=== PATIENT | male | born 1945 | race African-American/Black ===

== ENCOUNTER → 2017-09-16 10:29 | Outpatient (CLI) | payer MEDICARE ==
[2016-06-10 06:44] VITALS: BMI 36.8
[~2017-09-16 10:29] MED LIST: BAYER CHEWABLE81 MG PO; BUMEX2 MG PO; COUMADIN5 MG PO; DUONEB 2.5-0.5 M3 ML UPD; FOLIC ACID1 MG; GLUCOTROL 5 MG T5 MG PO; HYDRALAZINE20 MG/ML IV; HYDROCODON-ACE1 EAC7 PO; HYDROCODONE-APA1 TAB PO; LISINOPRIL10 MG NG; LISINOPRIL10 MG PO; LOVENOX40 MG/0.4 SQ; MIRALAX17 GM PO; NEPHRO-VITE RX1 TAB PO; NORVASC10 MG PO; ONDANSETRON4 MG/2 M3 IV; PEPCID20 MG PO; PERCOCET 10/3251 TA1 PO; PHENOBARBI20 MG/5 ML IV; PHENOBARBITAL IV; PHENOBARBITAL32.4 MG PO; PLAVIX75 MG PO; PRILOSEC20 MG PO; PRINIVIL20 MG PO; PROCRIT/EP2000 UNITS SQ; PROTONIX40 MG PO; REGLAN5 MG PO; RENAGEL800 MG PO; RESTORIL22.5 MG PO; SENOKOT-S TABLE1 TAB PO; TENORMIN50 MG PO; TYLENOL 325 MG325 MG PO; TYLENOL650 MG RC; ULTRAM50 MG PO; ZOFRAN4 MG PO
== END | disposition home or self-care (01) ==
LOC: D.RAD 10:29
DX: R07.9 Chest pain, unspecified (principal); S20.219A Contusion of unspecified front wall of thorax, initial encounter; X58.XXXA Exposure to other specified factors, initial encounter; Y93.89 Activity, other specified; Y92.029 Unspecified place in mobile home as the place of occurrence of the external cause

== ENCOUNTER 2017-10-06 06:28 | Day surgery (SDC) | payer MEDICARE ==
[~2017-10-06] VITALS: Ht 169.9 cm; Wt 84.8 kg
[~2017-10-06 06:28] MED LIST changes: -BAYER CHEWABLE81 MG PO; -HYDROCODON-ACE1 EAC7 PO; -NORVASC10 MG PO
[2017-10-06 07:27] LABS: BASOPHILS 0.5 % (0-2); EOSINOPHILS 3.1 % (0-7); HEMATOCRIT 33.6 % (42.0-54.0); HEMOGLOBIN 10.7 g/dL (13.5-17.5); MCH 29.3 pg (26.0-34.0); MCHC 31.8 g/dL (31.0-37.0); MCV 92.1 fL (80.0-100.0); MEAN PLATELET VOLUME 8.7 fL (7.4-10.4); MONOCYTES 4.6 % (2-11); NEUTROPHILS 76.8 % (40-80); PLATELET COUNT 210 10x3/uL (130-400); RBC 3.65 10x6/uL (4.20-6.10); RDW 12.7 % (11.5-14.5); WBC 3.9 10x3/uL (4.8-10.8)
[2017-10-06 07:37] LABS: ANION GAP 17.1 mmol/L (8-16); APTT 30.5 SECONDS (22.8-39.4); CALCIUM 8.9 mg/dL (8.5-10.1); CARBON DIOXIDE 25.2 mmol/L (21.0-32.0); CREATININE - SERUM 11.2 mg/dL (0.6-1.3); INR 0.99 (0.85-1.17); POTASSIUM - SERUM 5.3 mmol/L (3.5-5.1); PROTIME 12.9 SECONDS (11.6-15.0)
[2017-10-06] MEDS ORDERED: BAYER CHEWABLE81 MG PO (08:30)
[2017-10-06] MEDS ORDERED: NORVASC10 MG PO (08:32)
[2017-10-06 08:39] VITALS: Ht 169.9 cm; Wt 84.8 kg
[2017-10-06] MEDS ORDERED: HYDROCODON-ACE1 EAC7 PO (12:39)
--- NOTE | 2017-10-06 12:51 | NUR ---
PRE OPERATIVE BP 195.66
--- NOTE | 2017-10-06 13:56 | NUR ---
4892 ISIDRO GILLESPIE APN NOTIFIED THAT DIALYSIS NEEDS TO USE ACUSEAL AVG PROTOL STARTING TOMORROW WITH 17 G WITH NO ORE THAN 400/CC/MIN AND WEAR STERILE GLOVES FOR 2 WEEKS AND THAT THIS PT HAS A NEW ACUSEAL AVG IN LEFT ARM. JEFF STATES SHE WILL RELAY THE MESSAGE.
--- NOTE | 2017-10-06 14:08 | NUR ---
1400 REPORT TO BERNICE ENGLISH RN.
--- NOTE | 2017-10-06 14:10 | NUR ---
CARE ASSUMED BY THIS NURSE FROM HECTOR YI. BLOOD PRESSURE CUFF MOVED FROM RIGHT LEG TO RIGHT UPPER ARM. PATIENT STATES THAT PRE OPERATIVE BLOOD PRESSURE WAS CHECKED IN RIGHT ARM. BLOOD PRESSURE WITHIN NORMAL RANGE ON RIGHT ARM
--- NOTE | 2017-10-06 14:30 | NUR ---
BLOOD PRESSURE CONTINUES TO BE ACCEPTABLE WHEN CHECKED ON RIGHT ARM. IV DC'D WITH TIP INTACT, PATIENT DRESSING IN PERSONAL CLOTHING WITH SPOUSE ASSISTANCE
--- NOTE | 2017-10-06 15:00 | NUR ---
DISCHARGED HOME VIA WHEELCHAIR TO PRIVATE VEHICLE WITH SPOUSE
--- NOTE | 2017-10-11 16:03 | OP ---
PATIENT NAME: MARIA ANTONIA DEAN MEDICAL RECORD: [id number] :45 LOCATION:D[facility] ADMISSION DATE: SURGEON: VERNA CHRIS MD DATE OF OPERATION: 10/06/2017 REFERRING PHYSICIAN: Tam Goins MD SURGEON: Verna Chris MD ANESTHESIA: General with LMA per HORSE DOCTOR. PREOPERATIVE DIAGNOSES: End-stage renal disease and dependence on hemodialysis. Mechanical complication of surgically implanted arteriovenous graft for hemodialysis access in the left upper extremity. POSTOPERATIVE DIAGNOSES: End-stage renal disease and dependence on hemodialysis. Mechanical complication of surgically implanted arteriovenous graft for hemodialysis access in the left upper extremity. 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 PREOPERATIVE NOTE: Mr. Dean is a very nice 72-year-old -Citizen Of [place] male with end-stage renal disease, who has been dialyzing for sometime now with a PTFE AV graft in the left upper extremity in a rainbow configuration of brachial artery to axillary vein. He has had one revision with a new jump graft implanted lateral to the original and has had numerous endovascular interventions. He is presently having elevated venous pressures and the nurses are having difficulty accessing the graft and he is returned to the operating room at this time with plans to do a fistulogram and treat his central vein stenoses if recurrent and to revise this graft with a new Acuseal jump graft placed as close to the skin as possible in a slightly more lateral positioning in the upper arm in order to make it even easier for his nurses to access it. The patient is at this time off of anticoagulants. PROCEDURE IN DETAIL: Under general anesthesia, the patient was placed in supine position and prepped and draped in a sterile manner. I accessed the AV graft in the left arm percutaneously with micropuncture technique and performed an angiogram. This angiogram was followed through to the right atrium and the retrograde filling of the arterial limb and brachial artery and arterial anastomosis was obtained by injecting with proximal graft compression and occlusion. 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 A stent is present in the subclavian vein and fortunately there was no stenosis of that vessel or brachiocephalic or superior vena cava. The arterial limb of the graft was widely opened as was the arterial anastomosis and there was no evidence of any stenosis or other problems or complication with brachial, radial, or ulnar artery. No emboli or clots. No atherosclerotic stenosis, etc. There was very long and very severe near 99% diameter near occluding stenosis of the body of the graft and this is recurrent, having been treated very recently at [facility] at his last endovascular intervention. OPERATIVE REPORT [id number] MARIA ANTONIA DEAN I elected first to treat the central stenoses, and depending on their response, possibly also implant a new jump graft as I initially planned. Without systemic heparinization, I dilated the intrastent and proximal end of stent stenoses in the axillary vein with a Conquest high-pressure 10- x 40-mm angioplasty balloon and obtained full effacement. Consequent repeat contrast injection demonstrated less than 10% persistent stenosis of the end of stent stenosis and probably 20% stenosis of the in-stent stenosis remained. I then treated this area with a Lutonix drug-coated balloon, 11 x 60 mm in diameter and length. This was inflated in the involved segment with adequate overlap and it was left inflated with full effacement for 2 minutes, after which it was deflated and removed and then contrast injection revealed thrombosis of the axillary vein, which was subsequently treated with balloon maceration and systemic heparinization. I then made 2 incisions, one over the venous limb near the axilla and the other over the juxta-anastomotic or arterial limb near the antecubital space. The old graft was exposed, clamped, and divided. A segment of the graft was excised and sent to the laboratory for culture. This graft was an Acuseal graft. I chose a new Acuseal 6-mm diameter straight PTFE graft and performed the arterial or distal anastomosis first end-to-end with continuous running 6-0 Prolene. The suture line was treated with BioGlue and the graft and arterial anastomosis in brachial artery then flushed with heparinized saline and the graft clamped. The new Acuseal graft was pulled through new more lateral and very superficial subcutaneous tunnel up to the incision in the upper arm, where the graft was shortened and anastomosed end to end to the old graft also with running 6-0 Prolene and that anastomosis also was sealed with BioGlue. After this, the occluding clamps and loops were removed and excellent flow immediately established in the new graft. I performed a completion angiogram by injecting contrast through a micropuncture 4-Turkish catheter placed into the new PTFE segment. This angiogram revealed satisfactory result as far as the stenoses in the axillary vein and free flow to the right atrium. I did see that there was reflux of blood into the left internal jugular vein, but I could not identify any stenosis medial to that. The patient's heparin was not reversed. The wounds were irrigated with antibiotic solution, infiltrated and irrigated with 0.25% Marcaine without epinephrine, and closed with interrupted inverted 3-0 Vicryl and running intracuticular 4-0 Monocryl and Dermabond glue. The 2 incisions were then dressed with Maxorb Ag, Tegaderm, and Cavilon skin prep. The patient was awakened and taken to the recovery room with a good new fistula with good function. Blood loss during the operation was perhaps 100 cc, none was replaced. All sponges, instruments, and needles were accounted for. No drain was used and no surgical specimen was submitted for histopathology. The short segment of the older Acuseal graft was sent to the lab for culture. PLAN: The patient will need to have dialysis tomorrow. He can go home today and continue his usual outpatient dialysis schedule at [facility]. We will need to make very clear to them that it is essential that they follow Acuseal protocol with this new Acuseal graft for the first 2 weeks. That means using 17-gauge needles, restricting flow to 400 cc per minute or less, and using or wearing sterile gloves when accessing the graft. After 2 weeks, if it is functioning well without problems, they can go on to larger gauge needles and higher flows. An appointment was scheduled for him to return to see me in my office next week. I think the patient should continue to be followed at [facility] at 3-month intervals OPERATIVE REPORT [id number] MARIA ANTONIA DEAN with followup angiograms at least until stable or until further interventions are required. TRANSINT:[id number] Voice Confirmation ID: [id number] DOCUMENT ID: [id number] VERNA CHRIS MD at 7207 CC: RONNIE GOINS MD [id number] DICTATION DATE: 10/09/17 1303 INSOLE RASPER: 10/09/17 1828 [facility] 10/06/17 [facility] [address] [id number]
== END 2017-10-06 15:00 | disposition home or self-care (01) ==
LOC: D.OPS 06:28
PROVIDERS: Internal Medicine Nephrology
DX: T82.590A Other mechanical complication of surgically created arteriovenous fistula, initial encounter (principal); T82.858A Stenosis of other vascular prosthetic devices, implants and grafts, initial encounter; I87.1 Compression of vein; N18.6 End stage renal disease; Z99.2 Dependence on renal dialysis; Z01.812 Encounter for preprocedural laboratory examination

== ENCOUNTER → 2017-12-11 09:45 | Outpatient (CLI) | payer MEDICARE ==
[2017-10-06 08:39] VITALS: BMI 29.4
[~2017-12-11 09:45] MED LIST changes: +BAYER CHEWABLE81 MG PO; +HYDROCODON-ACE1 EAC7 PO; +NORVASC10 MG PO
== END | disposition home or self-care (01) ==
LOC: D.RAD 09:45
DX: M25.551 Pain in right hip (principal)

== ENCOUNTER → 2018-09-24 10:22 | Outpatient (CLI) | payer MEDICARE ==
[2017-10-06 08:39] VITALS: BMI 29.4
== END | disposition home or self-care (01) ==
LOC: D.RAD 10:22
DX: R22.42 Localized swelling, mass and lump, left lower limb (principal)

== ENCOUNTER → 2019-03-29 08:05 | Outpatient (CLI) | payer MEDICARE ==
[2017-10-06 08:39] VITALS: BMI 29.4
== END | disposition home or self-care (01) ==
LOC: D.US 08:00 → D.CT 08:00
PROVIDERS: ATTEND Internal Medicine Nephrology
DX: R11.2 Nausea with vomiting, unspecified (principal); R63.4 Abnormal weight loss

== ENCOUNTER 2019-04-28 08:12 | Day surgery (SDC) | payer MEDICARE ==
[~2019-04-28] VITALS: Ht 175.3 cm; Wt 71.7 kg
[2019-04-28 09:03] LABS: INR 1.13 (0.85-1.17)
[2019-04-28 09:04] LABS: APTT 32.2 SECONDS (22.8-39.4)
[2019-04-28 09:05] LABS: ANION GAP 19.1 mmol/L (8-16); CALCIUM 8.7 mg/dL (8.5-10.1); CARBON DIOXIDE 25.3 mmol/L (21.0-32.0); CREATININE - SERUM 5.1 mg/dL (0.6-1.3); POTASSIUM - SERUM 4.4 mmol/L (3.5-5.1)
[2019-04-28 09:37] LABS: BASOPHILS 0.2 % (0-2); EOSINOPHILS 0.6 % (0-7); HEMATOCRIT 40.8 % (42.0-54.0); HEMOGLOBIN 13.5 g/dL (13.5-17.5); IMMATURE GRANULOCYTES 0.8 % (0-5); LYMPHOCYTES 7.1 % (15-50); MCH 29.9 pg (26.0-34.0); MCHC 33.1 g/dL (31.0-37.0); MCV 90.5 fL (80.0-100.0); MONOCYTES 4.9 % (2-11); NEUTROPHILS 86.4 % (40-80); RBC 4.51 10x6/uL (4.20-6.10); RDW 15.4 % (11.5-14.5); WBC 6.5 10x3/uL (4.8-10.8)
[2019-04-28 09:38] LABS: PLATELET COUNT 390 10x3/uL (130-400)
[2019-04-28] MEDS ORDERED: OMEPRAZOLE40 MG PO (11:20)
[2019-04-28 11:35] VITALS: BP 112/61; Ht 175.3 cm; Wt 71.7 kg
--- NOTE | 2019-04-28 15:36 | NUR ---
CARE TRANSFERRED TO CHRISTIANNE LY RN
--- NOTE | 2019-04-28 15:55 | NUR ---
1545-RECD TO ROOM FROM PACU. ALERT. IV PATENT. RESP WITH EASE. R CHEST DRSG DRY AND INTACT. DENIES PAIN.
--- NOTE | 2019-04-28 17:33 | NUR ---
DISCHARGED HOME VIA WHEELCHAIR TO PRIVATE VEHICLE WITH SPOUSE
== END 2019-04-28 17:33 | disposition home or self-care (01) ==
LOC: D.OPS 08:12 → D.PAN 12:00 → D.OPS 17:33
PROVIDERS: Anesthesiology; ATTEND Surgery
DX: C78.80 Secondary malignant neoplasm of unspecified digestive organ (principal)

== ENCOUNTER 2019-05-15 11:20 | Inpatient (IN) | payer MEDICARE ==
[~2019-05-15] VITALS: Ht 175.3 cm; Wt 72.6 kg
[2019-05-15] VITALS (12 sets, daily range): BP systolic 121–155; BP diastolic 62–98; BMI 23.6
[~2019-05-15 11:20] MED LIST changes: +OMEPRAZOLE40 MG PO
[2019-05-15] MEDS ORDERED: DURAGESIC1 PATCH .7 TRANSDERM (11:30)
[2019-05-15] MEDS ORDERED: LEVOTHYROXINE50 MCG PO (11:31)
[2019-05-15] MEDS ORDERED: VELTASSA8.4 GM PO (11:32)
[2019-05-15] MEDS ORDERED: ZOFRAN4 MG PO (11:32)
[2019-05-15] MEDS ORDERED: RENVELA800 MG PO (11:32)
--- NOTE | 2019-05-15 11:38 | NUR ---
PT NOT ABLE TO PROVIDE URINE SAMPLE D/T INABILITY TO PRODUCE URINE
[2019-05-15 11:54] LABS: BASOPHILS 0 % (0-2); EOSINOPHILS 0.1 % (0-7); HEMATOCRIT 30.4 % (42.0-54.0); HEMOGLOBIN 10.3 g/dL (13.5-17.5); IMMATURE GRANULOCYTES 0.2 % (0-5); LYMPHOCYTES 2.7 % (15-50); MCH 29.9 pg (26.0-34.0); MCHC 33.9 g/dL (31.0-37.0); MCV 88.1 fL (80.0-100.0); MEAN PLATELET VOLUME 10.1 fL (7.4-10.4); MONOCYTES 0.8 % (2-11); NEUTROPHILS 96.2 % (40-80); PLATELET COUNT 274 10x3/uL (130-400); RBC 3.45 10x6/uL (4.20-6.10); RDW 14.9 % (11.5-14.5)
[2019-05-15 11:59] LABS: ALBUMIN 2.4 g/dL (3.4-5.0); ANION GAP 23.8 mmol/L (8-16); BILIRUBIN - TOTAL 2.59 mg/dL (0.2-1.3); CALCIUM 8.7 mg/dL (8.5-10.1); CARBON DIOXIDE 20.7 mmol/L (21.0-32.0); CREATININE - SERUM 5.9 mg/dL (0.6-1.3); POTASSIUM - SERUM 4.5 mmol/L (3.5-5.1); PROTEIN - SERUM 6.8 g/dL (6.4-8.2)
[2019-05-15 12:03] LABS: TROPONIN-I 0.043 ng/mL (0.000-0.060)
--- NOTE | 2019-05-15 12:39 | NUR ---
PT STATES HE IS FEELING "A LITTLE" BETTER. SITTING UP IN BED TALKING WITH FAMILY AT BEDSIDE. NO LONGER DRY HEAVING. WILL CON'T TO MONITOR.
--- NOTE | 2019-05-15 12:46 | NUR ---
PT IS LEFT ARM RESERVE.
--- NOTE | 2019-05-15 14:50 | NUR ---
REPORT GIVEN TO AMRIT CULVER, UTILIZING SBAR FORMAT.
--- NOTE | 2019-05-15 15:21 | NUR ---
PT REPORTS HE IS UNABLE TO TOLERATE LAYING FLAT FOR CT SCAN. ADVISED EDP KEYUR.
--- NOTE | 2019-05-15 15:39 | NUR ---
PXYIS REPORTS UNDOCUMENTED WASTE ON MORPHINE. ORDER WAS FOR 4MG/1ML MORPHINE, AND 4 MG\1ML MORPHINE WAS ADMINISTERED. UNABLE TO WASTE THERE IS NOT ANY MEDICATION REMAINING FROM 4MG VIAL. ADVISED PHARMACY AND IT CONSULTANT
--- NOTE | 2019-05-15 16:37 | NUR ---
ARRIVED TO UNIT AT THIS TIME VIA STRETCHER. PT CALM. VSS. WILL CONTINUE PLAN OF CARE.
--- NOTE | 2019-05-15 16:40 | NUR ---
C/O NAUSEA PRN ZOFRAN ADMIN.
--- NOTE | 2019-05-15 17:33 | NUR ---
DR HUMMEL HERE, ORDERS RECIEVED.
--- NOTE | 2019-05-15 19:03 | NUR ---
LYING IN BED RESTING WITH EYES CLOSED AT THIS TIME. NO ACUTE DISTRESS NOTED. VSS. SINUS RHYTHM. RESPIRATIONS STEADY AND UNLABORED. AWAKENS EASILY WHEN SPOKEN TO. WILL CONTINUE TO OBSERVE.
--- NOTE | 2019-05-15 22:00 | NUR ---
REPORT RECEIVED. PATIENT RECEIVED RESTING IN BED. AWAKE AND ALERT WITH FAMILY AT BEDSIDE. MONITORS CONNECTED TO PATIENT WITH ALARMS SET. VSS. NO ACUTE DISTRESS OBSERVED. CALL LIGHT IN REACH AND ABLE TO UTILIZE TO MAKE NEEDS KNOWN.
[2019-05-16] VITALS (13 sets, daily range): BP systolic 96–146; BP diastolic 51–80; Ht 175.3 cm; Wt 72.6 kg
--- NOTE | 2019-05-16 01:00 | NUR ---
RESTING WITH EYES CLOSED, EASILY ROUSED AND ALERT. VSS
[2019-05-16 05:00] LABS: BASOPHILS 0 % (0-2); EOSINOPHILS 0.1 % (0-7); HEMATOCRIT 28.8 % (42.0-54.0); HEMOGLOBIN 10.1 g/dL (13.5-17.5); IMMATURE GRANULOCYTES 0.6 % (0-5); LYMPHOCYTES 3.1 % (15-50); MCH 30.4 pg (26.0-34.0); MCHC 35.1 g/dL (31.0-37.0); MCV 86.7 fL (80.0-100.0); MEAN PLATELET VOLUME 10.3 fL (7.4-10.4); MONOCYTES 1.8 % (2-11); NEUTROPHILS 94.4 % (40-80); PLATELET COUNT 234 10x3/uL (130-400); RBC 3.32 10x6/uL (4.20-6.10); RDW 14.6 % (11.5-14.5); WBC 7.2 10x3/uL (4.8-10.8)
--- NOTE | 2019-05-16 05:00 | NUR ---
RESTING WITH EYES CLOSED, EASILY ROUSED AND ALERT. VSS
[2019-05-16 05:15] LABS: ALBUMIN 2.1 g/dL (3.4-5.0); BILIRUBIN - TOTAL 2.16 mg/dL (0.2-1.3); CALCIUM 8.1 mg/dL (8.5-10.1); CARBON DIOXIDE 25.2 mmol/L (21.0-32.0); CREATININE - SERUM 6.4 mg/dL (0.6-1.3); PROTEIN - SERUM 6.1 g/dL (6.4-8.2)
[2019-05-16 05:18] LABS: POTASSIUM - SERUM 5.2 mmol/L (3.5-5.1)
--- NOTE | 2019-05-16 07:00 | NUR ---
PT RESTING IN BED C CALL BRYANT IN REACH. VSS. NORMAL SINUS RHYTHM. FENTANYL PATCH TO LEFT CHEST. INFUSAPORT TO RIGHT CHEST WALL WITH CARDIZEM DRIP AT 10, NS AT KVO, AND ZOFRAN DRIP. LEFT ARM FISTULA WITH BRUIT AND THRILL. ALL PULSES PALPABLE. PT AWAKE ALERT AND ORIENTED ON 3L NC. NO COMPLAINTS
--- NOTE | 2019-05-16 09:08 | NUR ---
PT RESTING IN BED AWAKE ALERT AND ORIENTED. ADMNISTERED PRN PAIN AND NAUSEA MED PER REQUEST WITH OTHER MORNING MEDS. FAMILY MEMBER IN ROOM.
--- NOTE | 2019-05-16 09:46 | NUR ---
DR. ROBERTSON MADE ROUNDS ON PATIENT. NO ORDERS GIVEN.
--- NOTE | 2019-05-16 10:24 | NUR ---
ASKED DR. HUMMEL ABOUT URINALYSIS. STATED IT IS NOT NECESSARY.
--- NOTE | 2019-05-16 10:34 | NUR ---
REPORT GIVEN TO AMRIT MONTALVO.
--- NOTE | 2019-05-16 11:19 | NUR ---
REASSESSMENT COMPLETE PER FLOW SHEET. VSS. NO NEW CHANGES WILL CONTINUE TO MONITOR
--- NOTE | 2019-05-16 12:52 | NUR ---
PT RESTING COMFORTABLY VSS NO NEW CHANGES ASSISTED UP IN BED DENIES FURTHER NEEDS
--- NOTE | 2019-05-16 15:00 | NUR ---
DIALYSIS CALLED GIVEN UPDATE.
--- NOTE | 2019-05-16 17:26 | NUR ---
PATIENT ARRIVED TO THE ROOM FROM ICU, GREETED AND ORIENTATED. TELE PUT ON THE PATIENT ORDERED. CALL LIGHT IN REACH
--- NOTE | 2019-05-16 17:42 | NUR ---
PATIENT IS RESTING WITH EYES CLOSED, CALL LIGHT IN REACH
--- NOTE | 2019-05-16 19:30 | NUR ---
PATIENT LAYING IN BED, EYES CLOSED, CHEST RISING AND FALLING. NO DISTRESS NOTED. FAMILY AT BEDSIDE.
--- NOTE | 2019-05-16 21:17 | NUR ---
PATIENT TRANSFERRED TO DIALYSIS VIA BED ACCOMPANIED BY STAFF.
--- NOTE | 2019-05-17 00:21 | NUR ---
PATIENT BACK FROM DIAYLSIS VIA BED ESCORTED BY STAFF. PATIENT HAS NO COMPLAINTS AT THIS TIME. NO DISTRESS NOTED. DIALYSIS NURSE REPORTS 700ML OFF OF PATIENT DURING DIALYSIS.
[2019-05-17 00:45] VITALS: BP 121/58
[2019-05-17 06:00] LABS: BASOPHILS 0 % (0-2); EOSINOPHILS 0.1 % (0-7); HEMATOCRIT 28.9 % (42.0-54.0); HEMOGLOBIN 9.7 g/dL (13.5-17.5); IMMATURE GRANULOCYTES 0.4 % (0-5); LYMPHOCYTES 2.6 % (15-50); MCH 29.6 pg (26.0-34.0); MCHC 33.6 g/dL (31.0-37.0); MCV 88.1 fL (80.0-100.0); MONOCYTES 3.5 % (2-11); NEUTROPHILS 93.4 % (40-80); PLATELET COUNT 204 10x3/uL (130-400); RBC 3.28 10x6/uL (4.20-6.10); RDW 14.9 % (11.5-14.5); WBC 7.4 10x3/uL (4.8-10.8)
[2019-05-17 06:19] LABS: ANION GAP 16.2 mmol/L (8-16); CALCIUM 8.3 mg/dL (8.5-10.1); CARBON DIOXIDE 27.7 mmol/L (21.0-32.0); CREATININE - SERUM 5.2 mg/dL (0.6-1.3); POTASSIUM - SERUM 4.9 mmol/L (3.5-5.1)
[2019-05-17 06:39] VITALS: BP 141/56
[2019-05-17 07:45] VITALS: BP 138/62
--- NOTE | 2019-05-17 07:50 | NUR ---
PATIENT RESTING IN BED WITH LIGHTS OFF, EYES CLOSED. CALL LIGHT IN REACH. DOOR REMAINS OPEN. CLOSE TO NURSE STATION
--- NOTE | 2019-05-17 08:20 | NUR ---
PATIENT AWAKE, SPOUSE AT BEDSIDE. PATIENT IS SOMEWHAT CONFUSED AND WANTING TO GO HOME. KEYUR ALARM PLACED AT THIS TIME, YELLOW GOWN PUT ON THE PATIENT AT THIS TIME, YELLOW ARMBAND IN PLACE. INSTRUCTIONS OF FALL PRECAUTIONS EXPLAINED TO THE PATIENT AND HIS SPOUSE. CALL LIGHT IN REACH.
[2019-05-17 11:44] VITALS: BP 123/73
--- NOTE | 2019-05-17 11:54 | MORECARE ---
CASE MANAGEMENT DISCHARGE SUMMARY PATIENT: MARIA ANTONIA DEAN UNIT: [id number] ADM DATE: 05/15/19 AGE: 74 : 45 SEX: M ROOM/BED: D.2134 AUTHOR: SEAN CAMPOS PHYSICIAN: REFERRING PHYSICIAN: HELEN HUMMEL MD DATE OF SERVICE: 05/17/19 Discharge Plan Patient Name: MARIA ANTONIA DEAN [facility] [facility] 1945 Planned Disposition: Home Anticipated Discharge Date: Discharge Date: Expected LOS: Initial Reviewer: [email or web address] Initial Review Date: 05/17/2019 Generated: 05/17/19 12:54 pm DCPIA - Discharge Planning Initial Assessment Updated by [email or web address]: Pop Yang on 05/17/19 11:51 am * Is the patient Alert and Oriented? Yes * How many steps to enter\exit or inside your home? * PCP DR. RONNIE SENA * Pharmacy [facility]. * Preadmission Environment Home with Family * ADLs Partial Dependent * Partial ADLs (Assistance needed) Medication Management * Equipment Cane * Other Equipment NO MEDICAL EQUIPMENT PROVIDER PREFERENCE * List name and contact numbers for known caregivers / representatives who currently or will assist patient after discharge: WINDY DEAN, SPOUSE, * Verbal permission to speak to the caregivers and representatives has been obtained from the patient. N/A * Community resources currently utilized Other * Please name any agencies selected above. OUTPATIENT DIALYSIS, [facility], MWF, 0600 AM, SPOUSE DRIVES * Additional services required to return to the preadmission environment? No * Can the patient safely return to the preadmission environment? Yes * Has this patient been hospitalized within the prior 30 days at any hospital? No Patient Name: MARIA ANTONIA DEAN Page [phone] at 1154 All edits/amendments must be made on the electronic document DICTATION DATE: 05/17/19 1154 JOINTER MACHINE: YUAN 05/17/19 1154 RPT#: [id number] DC DATE: STATUS: ADM IN [facility] [address] [place] [address] END OF REPORT
--- NOTE | 2019-05-17 12:00 | NUR ---
CALLED AND REQUESTED THE IVON FROM THE PHARMACY
--- NOTE | 2019-05-17 12:02 | MORECARE ---
CASE MANAGEMENT DISCHARGE SUMMARY PATIENT: MARIA ANTONIA DEAN UNIT: [id number] ADM DATE: 05/15/19 AGE: 74 : 45 SEX: M ROOM/BED: D.2134 AUTHOR: BETH,DOC PHYSICIAN: REFERRING PHYSICIAN: HELEN HUMMEL MD DATE OF SERVICE: 05/17/19 Discharge Plan Patient Name: MARIA ANTONIA DEAN Facility: [facility]:[place] : 1945 Planned Disposition: Home Anticipated Discharge Date: Discharge Date: Expected LOS: Initial Reviewer: [email or web address] Initial Review Date: 05/17/2019 Generated: 05/17/19 1:02 pm Comments DCP- Discharge Planning Updated by [email or web address]: Pop Mazariegos on 05/17/19 10:[address] Patient Name: MARIA ANTONIA DEAN Encounter No: [id number] : 1945 Primary Insurance: MEDICARE A & B Anticipated DC Date: Planned Disposition: Home DISCHARGE PLANNING NOTE: CM MET WITH PT IN ROOM TO DISCUSS DISCHARGE PLANNING AND NEEDS. MARIA ANTONIA DEAN provided verbal consent to discuss current and ongoing needs with/in the presence of: SPOUSE, WINDY. PT REPORTS LIVING AT HOME INDEPENDENTLY HIS SPOUSE. PT HAS 2 CANES THAT HE DOES NOT USE. PT HAS NO MEDICAL EQUIPMENT PROVIDER PREFERENCE. PT HAS NO OUTSIDE SERVICES ASSISTING IN THE HOME. PT'S SPOUSE TRANSPORTS PT TO OUTPATIENT DIALYSIS AT [facility], MWF, 0600AM. CM DISCUSSED AVAILABILITY OF HOME HEALTH, REHAB SERVICES AND MEDICAL EQUIPMENT. PT DENIES DISCHARGE NEEDS, PT'S REPORTS SHE WILL PICK PT UP FOR DISCHARGE HOME. PT PLANS TO DISCHARGE HOME WITH SPOUSE, HAS NO ANTICIPATED DISCHARGE NEEDS. CM TO FOLLOW AND ASSIST IF NEEDED. POP MAZARIEGOS CASE MANAGEMENT DCPIA - Discharge Planning Initial Assessment Updated by [email or web address]: Pop Mazariegos on 05/17/19 11:51 am * Is the patient Alert and Oriented? Yes * How many steps to enter\exit or inside your home? * PCP DR. RONNIE SENA * Pharmacy [facility]. * Preadmission Environment Home with Family * ADLs Partial Dependent * Partial ADLs (Assistance needed) Medication Management * Equipment Cane * Other Equipment NO MEDICAL EQUIPMENT PROVIDER PREFERENCE * List name and contact numbers for known caregivers / representatives who currently or will assist patient after discharge: WINDY DEAN, SPOUSE, * Verbal permission to speak to the caregivers and representatives has been obtained from the patient. N/A * Community resources currently utilized Other * Please name any agencies selected above. OUTPATIENT DIALYSIS, [facility], MWF, 0600 AM, SPOUSE DRIVES * Additional services required to return to the preadmission environment? No * Can the patient safely return to the preadmission environment? Yes * Has this patient been hospitalized within the prior 30 days at any hospital? No Last DP export: 05/17/19 10:54 am Patient Name: MARIA ANTONIA DEAN Page [phone] at 1202 All edits/amendments must be made on the electronic document DICTATION DATE: 05/17/19 120 TOP LIFT TRIMMER: YUAN 05/17/19 120 RPT#: [id number] DC DATE: STATUS: ADM IN [facility] [address] [place] [address] END OF REPORT
--- NOTE | 2019-05-17 19:15 | NUR ---
PT ASLEEP. NO S/S OF DISTRESS. RESP EVEN AND UNLABORED. AT BEDSIDE. BED LOW AND CALL LIGHT IN REACH. NAME AND DATE PLACED ON BOARD. WILL CPOC
[2019-05-17 20:00] VITALS: BP 115/56
--- NOTE | 2019-05-17 22:18 | NUR ---
NIGHT MEDICATIONS GIVEN. EDUCATION ON THORAZINE. DILAUDID GIVEN FOR PAIN. PT HAS NO S/S OF DISTRESS. ZOFRAN GTT INFUSING ORDERED. DRSG CHANGE ON INFUSAPORT. PT AT BEDSIDE. PT WILL CALL FOR ASSIST WHEN NEEDED. FSBS IS 100 SNACK OFFERED. WILL CPOC
[2019-05-18] VITALS: BP 124/57
--- NOTE | 2019-05-18 03:08 | NUR ---
PT ASLEEP. RESP EVEN AND UNLABORED. BED LOW AND CALL LIGHT IN REACH. NO S/S OF DISTRESS. AT BEDSIDE. WILL CPOC
[2019-05-18 04:30] VITALS: BP 128/66
--- NOTE | 2019-05-18 05:55 | NUR ---
MORNING MEDICATIONS GIVEN. PT HARD TO AROUSE. TURNED CARAFATE INTO A LIQUID TO PREVENT DIFFICULTY SWALLOWING AND PREVENT PAIN FROM SWALLOWING. PT HAS NO S/S OF DISTRESS. REPOSITIONED IN BED. PT WILL CALL FOR ASSIST WHEN NEEDED. WILL CPOC
--- NOTE | 2019-05-18 06:08 | NUR ---
RIGHT CHEST UNDER IP SEEMS MILDLY SWOLLEN. TURNED OFF ZOFRAN DRIP AT THIS TIME. WILL REASSESS. MAY NEED TO RESTART IP
[2019-05-18 06:58] LABS: BASOPHILS 0 % (0-2); EOSINOPHILS 0.3 % (0-7); HEMATOCRIT 25.3 % (42.0-54.0); HEMOGLOBIN 8.5 g/dL (13.5-17.5); IMMATURE GRANULOCYTES 0.4 % (0-5); LYMPHOCYTES 5.2 % (15-50); MCH 29.5 pg (26.0-34.0); MCHC 33.6 g/dL (31.0-37.0); MCV 87.8 fL (80.0-100.0); MEAN PLATELET VOLUME 10.6 fL (7.4-10.4); MONOCYTES 5.2 % (2-11); NEUTROPHILS 88.9 % (40-80); PLATELET COUNT 167 10x3/uL (130-400); RBC 2.88 10x6/uL (4.20-6.10); RDW 14.8 % (11.5-14.5); WBC 6.9 10x3/uL (4.8-10.8)
[2019-05-18 07:24] LABS: ANION GAP 19.6 mmol/L (8-16); CALCIUM 8.1 mg/dL (8.5-10.1); CARBON DIOXIDE 24.6 mmol/L (21.0-32.0); CREATININE - SERUM 6.5 mg/dL (0.6-1.3); POTASSIUM - SERUM 5.2 mmol/L (3.5-5.1)
--- NOTE | 2019-05-18 07:30 | NUR ---
AM ROUNDS COMPLETED. INTRODUCED MYSELF TO PT PRIMARY RN FOR TODAYS SHIFT. PT IS A&O LYING BACK IN BED RESTING QUIETLY WITH HIS AT BEDSIDE. ROUNDED AND DISCUSSED PAIN MANAGEMENT WITH AND WILL ADJUST MEDICATIONS HE GETS A LITTLE CONFUSED OR "LOOPY" WITH THE PAIN MEDICATION HOWEVER DOESNT NEED TO BE IN PAIN. ALSO ADVANCING PTS DIET TO SEE WHAT HE CAN HANDLE AND WILL CONSULT SPEECH FOR SWALLOWING EVALUATION. PT IS A LEFT ARM RESERVED AND HAS GOOD BRUIT AND THRILL SKIN INTACT NO S/S OF SWELLING OR ISSUES NOTED. PT HAS A R.CHEST INFUSAPORT HOWEVER ITS SALINE LOCKED R/T PUFFINESS LAST NIGHT. WILL HAVE TO REPLACE IF INFILTRATED AND CHECK IN A LITTLE BIT. PT VOICED THANKS AND DENIES ANY IMMEDIATE NEEDS. CL IN REACH, BED IN LOWEST, SIDE RAILS X2. WILL CTM.
--- NOTE | 2019-05-18 09:15 | NUR ---
PT NEEDING ASSISTANCE TO THE BR. PT HAD LARGE VERY DARK LOOSE WATERY STOOL. DISCUSSED WITH PRIMARY AND WILL OBTAIN OCCULT STOOL. ALSO NOTED SMALL SKIN TEAR/SHEAR TO PTS BUTTOCKS, WILL KEEP CLEAN AND DRY. PT DENIES ANY CURRENT PAIN OR NEEDS AT THIS TIME. CL IN REACH, BED IN LOWEST, SIDE RAILS X2. WILL CTM.
[2019-05-18 09:17] VITALS: BP 128/56
--- NOTE | 2019-05-18 10:14 | NUR ---
DIALYSIS CALLED FOR PT. BROUGHT PT DOWN VIA W/C. PT DENIES ANY CURRENT NEEDS. WILL CTM.
--- NOTE | 2019-05-18 12:44 | NUR ---
Nutrition follow-up: Clear liquid diet at this time. Speech eval ordered due to swallowing issues Labs reviewed WT: 160# Waiting for speech recommendations. RDN following.
--- NOTE | 2019-05-18 15:00 | NUR ---
PT BACK FROM DIALYSIS AND STATES HE IS HUNGRY AND FEELING GOOD OVERALL. ORDERED PT SOME CHICKEN NOODLE SOUP AND IS AT BEDSIDE ASSISTING HIM WITH IT. WILL PROVIDE WITH MEDICATIONS THAT WERE DELAYED R/T DIALYSIS AND CPOC. CL IN REACH, BED IN LOWEST, SIDE RAILS X2. WILL CTM.
--- NOTE | 2019-05-18 17:03 | NUR ---
D/C PTS R.CHEST INFUSAPORT ACCESS IT WAS NOT IN PLACE. HUEBER NEEDLE TIP INTACT FULLY. NEW 20 GUAGE 1INCH HUEBER NEEDLE INSERTED TO R.CHEST INFUSAPORT, FLUSHED AND HAS GOOD BLOOD RETURN. BIOPATCH IN PLACE AND DRSG ADHERED TO SKIN. SL AND SWAB CAPS IN USE. PT SITTING UP IN BED RESTING QUIETLY. PT DENIES ANY CURRENT PAIN OR NEEDS AT THIS TIME. CL IN REACH, BED IN LOWEST, SIDE RAILS X2. WILL CTM.
[2019-05-18 17:36] VITALS: BP 113/55
--- NOTE | 2019-05-18 19:30 | NUR ---
EVENING ROUNDS MADE. PT SITTING UP IN BED. FAMILY AT BEDSIDE. PT DENIES PAIN AT THIS TIME. VOISE HOARSE AT THIS TIME. DENIES FURTHER CONCERNS. FALL PRECAUTIONS IN PLACE. YELLOW GOWN ON, NON SKID SOCKS ON, SR UP X 3. BED LOWERED AND LOCKED. CL IN REACH. WILL CTM.
[2019-05-18 20:00] VITALS: BP 124/86
--- NOTE | 2019-05-18 21:16 | NUR ---
VITALS STABLE. PT TOOK MEDS WITHOUT DIFFICULTY. DENIES PAIN AT THIS TIME. FALL PRECAUTIONS IN PLACE. YELLOW GOWN, NON SKID SOCKS ON. SR UP X 3. BED LOWERED AND LOCKED. CL IN REACH. WILL CTM.
[2019-05-19] VITALS: BP 107/64
--- NOTE | 2019-05-19 00:41 | NUR ---
I have reviewed this patient and I concur with the Shift Assessment completed by the Licensed Practical Nurse today this shift.
[2019-05-19 04:00] VITALS: BP 102/49
[2019-05-19 06:07] LABS: ANION GAP 16.3 mmol/L (8-16); CALCIUM 8.1 mg/dL (8.5-10.1); CARBON DIOXIDE 25.2 mmol/L (21.0-32.0); CREATININE - SERUM 5.2 mg/dL (0.6-1.3); POTASSIUM - SERUM 4.5 mmol/L (3.5-5.1)
[2019-05-19 06:12] LABS: BASOPHILS 0 % (0-2); EOSINOPHILS 0.7 % (0-7); HEMATOCRIT 28.3 % (42.0-54.0); HEMOGLOBIN 9.5 g/dL (13.5-17.5); IMMATURE GRANULOCYTES 0.2 % (0-5); LYMPHOCYTES 5.6 % (15-50); MCHC 33.6 g/dL (31.0-37.0); MCV 89.3 fL (80.0-100.0); MONOCYTES 8.2 % (2-11); NEUTROPHILS 85.3 % (40-80); PLATELET COUNT 164 10x3/uL (130-400); RBC 3.17 10x6/uL (4.20-6.10); RDW 14.8 % (11.5-14.5); WBC 5.7 10x3/uL (4.8-10.8)
--- NOTE | 2019-05-19 07:20 | NUR ---
PT RESTING IN BED, SHIFT ASSESSMENT PERFORMED. DENIES ANY NEEDS AT THIS TIME, WILL CONT TO FOLLOW POC
[2019-05-19 09:20] VITALS: BP 135/71
--- NOTE | 2019-05-19 12:20 | NUR ---
PT RESTING IN BED EATING LUNCH. DENIES ANY NEEDS AT THIS TIME. WILL CONT TO FOLLOW POC
[2019-05-19 13:19] VITALS: BP 113/56
[2019-05-19 17:43] VITALS: BP 130/53
--- NOTE | 2019-05-19 19:22 | NUR ---
EVENING ROUNDS MADE. PT LAYING IN BED RESTING. FAMILY AT BEDSIDE. PT DENIES PAIN AT THIS TIME. BREATHING EVEN AND UNLABORED. NO FURTHER CONCERNS AT THIS TIME. FALL PRECAUTIONS IN PLACE. YELLOW GOWN ON. NON SKID SOCKS ON. SR UP X 3. BED LOWERED AND LOCKED. CL IN REACH. WILL CTM.
[2019-05-19 20:00] VITALS: BP 112/54
--- NOTE | 2019-05-19 20:49 | NUR ---
VITALS STABLE. PT TOOK MEDS WITHOUT DIFFICULTY. NO FURTHER CONCERNS AT THIS TIME.
[2019-05-20] VITALS: BP 117/68
--- NOTE | 2019-05-20 01:45 | NUR ---
I have reviewed this patient and I concur with the Shift Assessment completed by the Licensed Practical Nurse today this shift.
[2019-05-20 04:00] VITALS: BP 102/50
[2019-05-20 05:41] LABS: BASOPHILS 0 % (0-2); EOSINOPHILS 0.5 % (0-7); HEMATOCRIT 28.6 % (42.0-54.0); HEMOGLOBIN 9.7 g/dL (13.5-17.5); IMMATURE GRANULOCYTES 0.5 % (0-5); LYMPHOCYTES 5.2 % (15-50); MCH 29.9 pg (26.0-34.0); MCHC 33.9 g/dL (31.0-37.0); MCV 88.3 fL (80.0-100.0); MEAN PLATELET VOLUME 10.6 fL (7.4-10.4); MONOCYTES 8.7 % (2-11); NEUTROPHILS 85.1 % (40-80); PLATELET COUNT 155 10x3/uL (130-400); RBC 3.24 10x6/uL (4.20-6.10); WBC 4.3 10x3/uL (4.8-10.8)
[2019-05-20 06:01] LABS: ANION GAP 17.1 mmol/L (8-16); CALCIUM 7.8 mg/dL (8.5-10.1); CARBON DIOXIDE 24.3 mmol/L (21.0-32.0); CREATININE - SERUM 6.4 mg/dL (0.6-1.3); POTASSIUM - SERUM 4.4 mmol/L (3.5-5.1)
--- NOTE | 2019-05-20 07:30 | NUR ---
PT RESTING IN BED, SHIFT ASSESSMENT PERFORMED. DENIES ANY NEEDS AT THIS TIME. WILL CONT TO FOLLOW POC
[2019-05-20 07:52] VITALS: BP 112/54
--- NOTE | 2019-05-20 11:50 | NUR ---
PT TAKEN DOWN TO DIALYSIS VIA WHEELCHAIR
--- NOTE | 2019-05-20 11:51 | MORECARE ---
CASE MANAGEMENT DISCHARGE SUMMARY PATIENT: MARIA ANTONIA DEAN UNIT: [id number] ADM DATE: 05/15/19 AGE: 74 : 45 SEX: M ROOM/BED: D.7104 AUTHOR: BETH,DOC PHYSICIAN: REFERRING PHYSICIAN: HELEN HUMMEL MD DATE OF SERVICE: 05/20/19 Discharge Plan Patient Name: MARIA ANTONIA DEAN Facility: [facility]:[place] : 1945 Planned Disposition: Home Anticipated Discharge Date: Discharge Date: Expected LOS: Initial Reviewer: [id number] Initial Review Date: 05/17/2019 Generated: 05/20/19 12:51 pm DCP- Discharge Planning Updated by [id number]: Pop Mazariegos on 05/17/19 10:[address] Patient Name: MARIA ANTONIA DEAN Encounter No: [id number] : 1945 Primary Insurance: MEDICARE A & B Anticipated DC Date: Planned Disposition: Home DISCHARGE PLANNING NOTE: CM MET WITH PT IN ROOM TO DISCUSS DISCHARGE PLANNING AND NEEDS. MARIA ANTONIA DEAN provided verbal consent to discuss current and ongoing needs with/in the presence of: SPOUSE, WINDY. PT REPORTS LIVING AT HOME INDEPENDENTLY HIS SPOUSE. PT HAS 2 CANES THAT HE DOES NOT USE. PT HAS NO MEDICAL EQUIPMENT PROVIDER PREFERENCE. PT HAS NO OUTSIDE SERVICES ASSISTING IN THE HOME. PT'S SPOUSE TRANSPORTS PT TO OUTPATIENT DIALYSIS AT [facility], MWF, 0600AM. CM DISCUSSED AVAILABILITY OF HOME HEALTH, REHAB SERVICES AND MEDICAL EQUIPMENT. PT DENIES DISCHARGE NEEDS, PT'S REPORTS SHE WILL PICK PT UP FOR DISCHARGE HOME. PT PLANS TO DISCHARGE HOME WITH SPOUSE, HAS NO ANTICIPATED DISCHARGE NEEDS. CM TO FOLLOW AND ASSIST IF NEEDED. POP MAZARIEGOS CASE MANAGEMENT DCPIA - Discharge Planning Initial Assessment Updated by [email or web address]: Pop Mazariegos on 05/17/19 11:51 am * Is the patient Alert and Oriented? Yes * How many steps to enter\exit or inside your home? * PCP DR. RONNIE SENA * Pharmacy [facility]. * Preadmission Environment Home with Family * ADLs Partial Dependent * Partial ADLs (Assistance needed) Medication Management * Equipment Cane * Other Equipment NO MEDICAL EQUIPMENT PROVIDER PREFERENCE * List name and contact numbers for known caregivers / representatives who currently or will assist patient after discharge: WINDY DEAN, SPOUSE, * Verbal permission to speak to the caregivers and representatives has been obtained from the patient. N/A * Community resources currently utilized Other * Please name any agencies selected above. OUTPATIENT DIALYSIS, [facility], MWF, 0600 AM, [employer] DRIV[facility] * Additional services required to return to the preadmission environment? No * Can the patient safely return to the preadmission environment? Yes * Has this patient been hospitalized within the prior 30 days at any hospital? No Coverage Notice Reviewer: [id number] Mazariegos Notice Issued Date-Time: 05/20/2019 11:30 Notice Type: Patient Choice Letter Notice Delivered To: Family Member Relationship to Patient: Spouse Thermostat Machine Tender Name: GRETA DEAN Delivery Method: HAND - Hand Delivered [place] Days: Prior Verbal Notification: Recipient Understood Notice: Yes Recipient Signature: Yes Med Rec Note Co-signed by Attending: Coverage Notice Comment: [facility] PATIENT Reviewer: [id number] Mazariegos Notice Issued Date-Time: 05/20/2019 11:30 Notice Type: IM Discharge Notice Notice Delivered To: Family Member Relationship to Patient: Spouse Thermostat Machine Tender Name: GRETA DEAN Delivery Method: HAND - Hand Delivered [place] Days: Prior Verbal Notification: Recipient Understood Notice: Yes Recipient Signature: Yes Med Rec Note Co-signed by Attending: Coverage Notice Comment: Last DP export: 05/17/19 11:02 am Patient Name: MARIA ANTONIA DEAN Page [phone] at 1151 All edits/amendments must be made on the electronic document DICTATION DATE: 05/20/19 1150 DRAINAGE DESIGN COORDINATOR: YUAN 05/20/19 1150 RPT#: [id number] DC DATE: STATUS: ADM IN [facility] [address] [place] [address] END OF REPORT
[2019-05-20 12:01] VITALS: BP 95/50
--- NOTE | 2019-05-20 12:07 | NUR ---
ATTEMPTED TO REACH TO SEE IF OK FOR PT TO D/C AND GET OUTPT CHEMO TREATMENTS. NO ANSWER AT CLINIC.
--- NOTE | 2019-05-20 15:08 | NUR ---
Nutrition Follow Up: Diet: Renal ADA PO Intake: 75% meal avg BM: 05/18/19 Meds and labs reviewed Rec continue current diet. RD following.
--- NOTE | 2019-05-20 16:23 | NUR ---
Rehab Prescreening Consult recieved and the chart has been reviewed. According to the CM notes this patient plans to discharge back home with his spouse at discharge. Rehab will visit with the patient and see if he has changed his mind re the ARU. Thank you for the referral. Yanet Nunez RN Clinical liaison, Rehab
--- NOTE | 2019-05-20 16:51 | MORECARE ---
CASE MANAGEMENT DISCHARGE SUMMARY PATIENT: MARIA ANTONIA DEAN UNIT: [id number] ADM DATE: 05/15/19 AGE: 74 : 45 SEX: M ROOM/BED: D.1894 AUTHOR: BETH,DOC PHYSICIAN: REFERRING PHYSICIAN: HELEN HUMMEL MD DATE OF SERVICE: 05/20/19 Discharge Plan Patient Name: MARIA ANTONIA DEAN [facility] [facility] 1945 Planned Disposition: Inpatient Rehab Anticipated Discharge Date: 05/21/19 Discharge Date: Expected LOS: 6 Initial Reviewer: [id number] Initial Review Date: 05/17/2019 Generated: 05/20/19 5:51 pm Comments DCP- Discharge Planning Updated by [email or web address]: Pop Mazariegos on 05/20/19 3:[address] Patient Name: MARIA ANTONIA DEAN Encounter No: [id number] : 1945 Primary Insurance: MEDICARE A & B Anticipated DC Date: 05-21-2019 Planned Disposition: Inpatient Rehab External Planned Provider: [facility] INPATIENT REHAB DCP follow-up note: CM REVIEWED CHART, MET WITH PT'S SPOUSE IN ROOM, PT IN DIALYSIS. PT'S SPOUSE REPORTS PT IS TOO WEAK AND "SHAKEY" TO GO HOME AT THIS TIME AND THEY HAVE DECIDED TO DO REHAB HERE AT [facility]. CM RECEIVED ORDER FOR INPATIENT REHAB PRESCREENING. CM WAITING INPATIENT REHAB PRESCREENING AND ADMISSION DETERMINATION FROM [facility] INPATIENT REHAB. ALEX Willis DCP- Discharge Planning Updated by [id number]: Pop Mazariegos on 05/17/19 10:[address] Patient Name: MARIA ANTONIA DEAN Encounter No: [id number] : 1945 Primary Insurance: MEDICARE A & B Anticipated DC Date: Planned Disposition: Home DISCHARGE PLANNING NOTE: CM MET WITH PT IN ROOM TO DISCUSS DISCHARGE PLANNING AND NEEDS. MARIA ANTONIA DEAN provided verbal consent to discuss current and ongoing needs with/in the presence of: SPOUSE, WINDY. PT REPORTS LIVING AT HOME INDEPENDENTLY HIS SPOUSE. PT HAS 2 CANES THAT HE DOES NOT USE. PT HAS NO MEDICAL EQUIPMENT PROVIDER PREFERENCE. PT HAS NO OUTSIDE SERVICES ASSISTING IN THE HOME. PT'S SPOUSE TRANSPORTS PT TO OUTPATIENT DIALYSIS AT [facility], MWF, 0600AM. CM DISCUSSED AVAILABILITY OF HOME HEALTH, REHAB SERVICES AND MEDICAL EQUIPMENT. PT DENIES DISCHARGE NEEDS, PT'S REPORTS SHE WILL PICK PT UP FOR DISCHARGE HOME. PT PLANS TO DISCHARGE HOME WITH SPOUSE, HAS NO ANTICIPATED DISCHARGE NEEDS. CM TO FOLLOW AND ASSIST IF NEEDED. POP MAZARIEGOS, CASE MANAGEMENT DCPIA - Discharge Planning Initial Assessment Updated by [id number]: Pop Mazariegos on 05/17/19 11:51 am * Is the patient Alert and Oriented? Yes * How many steps to enter\\exit or inside your home? * PCP DR. RONNIE SENA * Pharmacy [facility]. * Preadmission Environment Home with Family * ADLs Partial Dependent * Partial ADLs (Assistance needed) Medication Management * Equipment Cane * Other Equipment NO MEDICAL EQUIPMENT PROVIDER PREFERENCE * List name and contact numbers for known caregivers / representatives who currently or will assist patient after discharge: WINDY DEAN, SPOUSE, * Verbal permission to speak to the caregivers and representatives has been obtained from the patient. N/A * Community resources currently utilized Other * Please name any agencies selected above. OUTPATIENT DIALYSIS, [facility], MWF, 0600 AM, [employer] [employer] * Additional services required to return to the preadmission environment? No * Can the patient safely return to the preadmission environment? Yes * Has this patient been hospitalized within the prior 30 days at any hospital? No Coverage Notice Reviewer: [id number] Carlos Mazariegos Notice Issued Date-Time: 05/20/2019 11:30 Notice Type: Patient Choice Letter Notice Delivered To: Family Member Relationship to Patient: Spouse Astrobiologist Name: GRETA DEAN Delivery Method: HAND - Hand Delivered [place] Days: Prior Verbal Notification: Recipient Understood Notice: Yes Recipient Signature: Yes Med Rec Note Co-signed by Attending: Coverage Notice Comment: [facility] PATIENT Reviewer: [id number] Carlos Mazariegos Notice Issued Date-Time: 05/20/2019 11:30 Notice Type: IM Discharge Notice Notice Delivered To: Family Member Relationship to Patient: Spouse Astrobiologist Name: GRETA DEAN Delivery Method: HAND - Hand Delivered [place] Days: Prior Verbal Notification: Recipient Understood Notice: Yes Recipient Signature: Yes Med Rec Note Co-signed by Attending: Coverage Notice Comment: Last DP export: 05/20/19 10:51 am Patient Name: MARIA ANTONIA DEAN Page [phone] at 1651 All edits/amendments must be made on the electronic document DICTATION DATE: 05/20/191649 LEVEL VIAL SEALER: YUAN 05/20/191649 RPT#: [id number] DC DATE: STATUS: ADM IN [facility] [address] [place] [address] END OF REPORT
--- NOTE | 2019-05-20 19:25 | NUR ---
PT LAYING IN BED RESTING WITH AT BEDSIDE. PT A&O X4. RR EVEN AND UNLABORED. VITALS STABLE. PT DENIES ANY PAIN OR NEEDS AT THIS TIME. BED LOW CALL LIGHT WITHIN REACH WILL CONTINUE TO MONITOR.
[2019-05-20 20:00] VITALS: BP 103/52
[2019-05-21] VITALS: BP 98/47
--- NOTE | 2019-05-21 02:15 | NUR ---
I have reviewed this patient and I concur with the Shift Assessment completed by the Licensed Practical Nurse today this shift.
--- NOTE | 2019-05-21 03:14 | NUR ---
PT RESTING IN BED WITH EYES CLOSED. RR EVEN AND UNLABORED. AT BEDSIDE. NO S/S OF DISTRESS AT THIS TIME. BED LOW CALL LIGHT WITHIN REACH. WILL CONTINUE TO MONITOR.
[2019-05-21 04:00] VITALS: BP 111/52
[2019-05-21 05:47] LABS: BASOPHILS 0 % (0-2); EOSINOPHILS 0.8 % (0-7); HEMATOCRIT 23.6 % (42.0-54.0); HEMOGLOBIN 8.1 g/dL (13.5-17.5); IMMATURE GRANULOCYTES 0.5 % (0-5); LYMPHOCYTES 7.9 % (15-50); MCH 30.5 pg (26.0-34.0); MCHC 34.3 g/dL (31.0-37.0); MCV 88.7 fL (80.0-100.0); MEAN PLATELET VOLUME 10.4 fL (7.4-10.4); MONOCYTES 8.7 % (2-11); NEUTROPHILS 82.1 % (40-80); PLATELET COUNT 169 10x3/uL (130-400); RBC 2.66 10x6/uL (4.20-6.10); RDW 15.3 % (11.5-14.5); WBC 3.7 10x3/uL (4.8-10.8)
[2019-05-21 06:02] LABS: ANION GAP 14.1 mmol/L (8-16); CALCIUM 7.7 mg/dL (8.5-10.1); CREATININE - SERUM 5.2 mg/dL (0.6-1.3); POTASSIUM - SERUM 4.1 mmol/L (3.5-5.1)
--- NOTE | 2019-05-21 07:00 | NUR ---
RECEIVED REPORT. ASSUMED CARE OF PATIENT. RESTING IN BED WITH OPEN. PATIENT AT BEDSIDE. CALL LIGHT WITHIN REACH. SINUS RHYTHM ON TELEMETRY, RATE 79 THIS AM. DENIES NEEDS. NO DISTRESS.
[2019-05-21 09:33] VITALS: BP 108/54
--- NOTE | 2019-05-21 11:05 | NUR ---
FSBS 127. NO INSULIN PER SLIDING SCALE.
[2019-05-21 14:23] VITALS: BP 112/61
[2019-05-21 16:10] VITALS: BP 104/52
--- NOTE | 2019-05-21 17:23 | NUR ---
FSBS 169. 2 UNITS HUMULIN ADMINISTERED ORDERED PER SLIDING SCALE. FRESH ICE WATER PROVIDED.
[2019-05-21 19:10] VITALS: BP 129/60
--- NOTE | 2019-05-21 19:52 | NUR ---
PT RESTING IN BED WITH EYES CLOSED RR EVEN AND UNLABORED. AT BEDSIDE. NO S/S OF DISTRESS AT THIS TIME. BED LOW CALL LIGHT WITHIN REACH. WILL CONTINUE TO MONITOR.
[2019-05-22] VITALS: BP 110/60
--- NOTE | 2019-05-22 01:16 | NUR ---
REPOSITIONED PT TO RIGHT SIDE. PT RR EVEN AND UNLABORED. NO S/S OF DISTRESS. BED LOW WIFIE AT BEDSIDE, CALL LIGHT WITHIN REACH. WILL CONTINUE TO MONITOR.
[2019-05-22 04:00] VITALS: BP 99/47
--- NOTE | 2019-05-22 05:30 | NUR ---
I have reviewed this patient and I concur with the Shift Assessment completed by the Licensed Practical Nurse today this shift.
[2019-05-22 06:31] LABS: BASOPHILS 0 % (0-2); EOSINOPHILS 0.7 % (0-7); HEMATOCRIT 24.2 % (42.0-54.0); HEMOGLOBIN 8.1 g/dL (13.5-17.5); IMMATURE GRANULOCYTES 0.7 % (0-5); LYMPHOCYTES 9.2 % (15-50); MCHC 33.5 g/dL (31.0-37.0); MCV 89.6 fL (80.0-100.0); MEAN PLATELET VOLUME 10.4 fL (7.4-10.4); MONOCYTES 9.2 % (2-11); NEUTROPHILS 80.2 % (40-80); PLATELET COUNT 188 10x3/uL (130-400); RDW 15.4 % (11.5-14.5)
[2019-05-22 06:51] LABS: ANION GAP 11.4 mmol/L (8-16); CALCIUM 7.4 mg/dL (8.5-10.1); CARBON DIOXIDE 28.6 mmol/L (21.0-32.0); CREATININE - SERUM 6.4 mg/dL (0.6-1.3)
--- NOTE | 2019-05-22 07:00 | NUR ---
RECEIVED REPORT. ASSUMED CARE OF PATIENT. CALL LIGHT WITHIN REACH. DENIES NEEDS. PATIENTS AT BEDSIDE. RESP EVEN AND UNLABORED.
--- NOTE | 2019-05-22 09:00 | NUR ---
NEW MATTRESS PLACED ON PATIENT BED PATIENT COMPLAINED OF BEING ABLE TO FEEL THE BAR FROM THE BEDFRAME WHILE SITTING ON THE OLD MATTRESS.
[2019-05-22 09:13] VITALS: BP 97/47
--- NOTE | 2019-05-22 11:43 | NUR ---
FSBS 190. 2 U NITS HUMULIN ADMINISTERED AT THIS TIME.
[2019-05-22 12:38] VITALS: BP 105/44
--- NOTE | 2019-05-22 13:34 | NUR ---
PATIENT AGREED TO ADMINISTRATION OF SOLUMEDROL TODAY. PATIENT RESTING WITH EYES CLOSED. NO DISTRESS. CALL LIGHT WITHIN REACH.
--- NOTE | 2019-05-22 16:31 | NUR ---
FSBS 101. NO INSULIN PER SLIDING SCALE.
[2019-05-22 16:47] VITALS: BP 110/50
--- NOTE | 2019-05-22 18:04 | NUR ---
CALLED TO PATIENT ROOM. PATIENT WAS SITTING ON CHAIR AND GOT UP TO GET IN BED AND HIS LEGS BUCKLED. PATIENT AND HIS REPORT PATIENT HIT HIS HEAD ON THE CHAIR AND FLOOR. PATIENT ASSISTED OFF FLOOR TO SIDE OF BED, NO VISUAL INJURIES SUCH HEMATOMA, LACERATIONS, PALPABLE KNOTS OR INDENTATIONS. PATIENT IS ALERT AND ORIENTED TO NAME, PLACE, YEAR AND SITUATION. VS 121/53, 98.8, 82, 18, 100% O2 ON 2L/NC. CALLED ROSALIND GILLESPIE TO REPORT FALL AND RECIEVED NEW ORDERS FOR CT OF HEAD WITHOUT CONTRAST AND NEURO CHECKS EVERY 4 HOURS. ORDERS ENTERED INTO COMPUTER.
--- NOTE | 2019-05-22 18:26 | NUR ---
PATIENT RETURNED TO UNIT FROM CT OF HEAD AT THIS TIME. NO DISTRESS UPON RETURNING TO UNIT. CALL LIGHT WITHIN REACH.
[2019-05-22 20:00] VITALS: BP 113/66
--- NOTE | 2019-05-22 20:15 | NUR ---
EVENING ROUNDS COMPLETED. REPORT RECEIVED. PT SITTING UP IN BED WITH EYES OPEN, RR EVEN AND UNLABORED. BED IN LOW POSITION. NO S/S OF DISTRESS NOTED. INTRODUCED SELF TO PT AND "ELIZABETH". PT ANSWERS QUESTIONS APPROPRATELY AND CAN PROPERLY ANSWER ALL QUESTIONS IN ADEQUATE TIME. PUPILLARY RESPONSE IS EVEN ASSYMETRICALLY. PT DENIES COMPLAINTS OF PAIN AT THIS TIME. CALL LIGHT IN REACH. WILL CTM.
[2019-05-23] VITALS (47 sets, daily range): BP systolic 81–154; BP diastolic 44–70
[2019-05-23 02:55] LABS: BASOPHILS 0 % (0-2); EOSINOPHILS 0.5 % (0-7); HEMATOCRIT 22.2 % (42.0-54.0); HEMOGLOBIN 7.3 g/dL (13.5-17.5); IMMATURE GRANULOCYTES 0.2 % (0-5); LYMPHOCYTES 20.4 % (15-50); MCH 29.8 pg (26.0-34.0); MCHC 32.9 g/dL (31.0-37.0); MCV 90.6 fL (80.0-100.0); MEAN PLATELET VOLUME 9.6 fL (7.4-10.4); MONOCYTES 10.3 % (2-11); NEUTROPHILS 68.6 % (40-80); PLATELET COUNT 215 10x3/uL (130-400); RBC 2.45 10x6/uL (4.20-6.10); RDW 15.4 % (11.5-14.5); WBC 4.1 10x3/uL (4.8-10.8)
--- NOTE | 2019-05-23 03:00 | NUR ---
CALLED [facility] REGARDING PT CRITICAL LAB VALUE.
[2019-05-23 03:06] LABS: ANION GAP 17.1 mmol/L (8-16); CALCIUM 7.3 mg/dL (8.5-10.1); CARBON DIOXIDE 24.1 mmol/L (21.0-32.0); CREATININE - SERUM 7.3 mg/dL (0.6-1.3); POTASSIUM - SERUM 4.2 mmol/L (3.5-5.1)
--- NOTE | 2019-05-23 03:30 | NUR ---
CALLED [facility] REGARDING PT CRITICAL LAB VALUE.
--- NOTE | 2019-05-23 05:37 | NUR ---
I have reviewed this patient and I concur with the Shift Assessment completed by the Licensed Practical Nurse today this shift.
--- NOTE | 2019-05-23 06:20 | NUR ---
RECEIVED CALL BACK FROM JEFF GILLESPIE NURSE PRACTICIONER, NOTIFIED HER OF PT HGB 7.3. ALSO NOTIFIED HER OF BLOODY STOOL OBSERVED, UNABLE TO COLLECT SAMPLE. SHE ORDERED 2 UNITS TO BE GIVEN DURING DIALYSIS AND TO HAVE A PHYSICIAN CONSULTED FROM GI.
--- NOTE | 2019-05-23 10:27 | NUR ---
NURSE WENT INTO THE PTS ROOM TO CLEAN THE PATIENT UP AND GET HIM READY FOR DIALYSIS. NURSE NOTICED BLOOD SOAKING THROUGH BREIF AND ONTO BED SHEETS. RAPID WAS CALLED. NEW ORDERS FRO DOCTOR WERE RECIEVED. BOLUS NUMBER ONE WAS STARTED WHILE PATIENT WAS CLEANED UP FOR TRANSPORT TO THE ICU. REPORT WAS CALLED TO ABI MARCUS. PATIENT WAS TAKEN TO ICU WITH NURSE AND WINDOW SHADE CUTTER AND MOUNTER.
--- NOTE | 2019-05-23 18:00 | NUR ---
1045 PATIENT ARRIVE FROM [facility] II A RESULT OF RAPID RESPONSE
--- NOTE | 2019-05-23 18:02 | NUR ---
1100 REPOSITION IN BED ASSESSMENT COMPLETE LEFT ARM RESERVED ACKNOWLEDGED. SIGN PLACED ON DOOR
--- NOTE | 2019-05-23 18:03 | NUR ---
1300 FIRST OF TWO UNITS PRBC INFUSING TO RIGHT CHEST WALL PORT SITE SATISFACTORY
--- NOTE | 2019-05-23 18:04 | NUR ---
1500 DR STONE AND GI TEAM SETTING UP FOR EGD AND COLONOSCOPY UNIT BLOOD COMPLETE LEVOPHED AT 5MCG/MINUTE RESTARTED TO PORT AFTER PRBC INFUSIION COMPLETE
--- NOTE | 2019-05-23 18:07 | NUR ---
1700 COLONOSCOPY CANCELLED ONLY EGD PERFORMED. SEE SURGICAL REPORT. LEVOPED FOUND INFUSING AT 20MCG/MIN TO MAINTAINE B/P DURING PROCEEDURE GIVEN REPORT BY DR STONE.
--- NOTE | 2019-05-23 18:30 | NUR ---
STOPPED LEVOPHED TO TRANSFUSE PRBC. WILL TRANSFUSE RAPIDLY IN ORDER TO RESUME LEVOPHED SINCE ONLY ONE IV ACCESS AND NOONE ABLE TO OBTAIN ADDITIONAL ACCESS. MONTORING BP Q 5 MINUTES.
--- NOTE | 2019-05-23 18:50 | NUR ---
BLOOD TRANSFUSION COMPLETED. RESTARTED LEVOPHED AT 20MCG BEFORE
--- NOTE | 2019-05-23 19:00 | NUR ---
REPORT RECEIVED, RECEIVED PATIENT IN BED. RESTING WITH EYES CLOSED. EASILY ROUSED AND ALERT. ORIENTED TO PERSON WITH SOME CONFUSIION TO DATE/TIME PLACE AND SITUATION. SPEECH CLEAR. MONITORS CONNECTED TO PATIENT WITH NO ALARMS SET. VSS. CALL LIGHT IN REACH. SHIFT ASSESSMENT COMPLETED AT THIS TIME PER FLOW SHEET WITH NO ACUTE DISTRESS OBSERVED.
[2019-05-23 19:58] LABS: BASOPHILS 0.1 % (0-2); EOSINOPHILS 0.1 % (0-7); HEMATOCRIT 28.4 % (42.0-54.0); HEMOGLOBIN 9.3 g/dL (13.5-17.5); IMMATURE GRANULOCYTES 0.6 % (0-5); LYMPHOCYTES 7.1 % (15-50); MCH 28.9 pg (26.0-34.0); MCHC 32.7 g/dL (31.0-37.0); MCV 88.2 fL (80.0-100.0); MONOCYTES 9.9 % (2-11); NEUTROPHILS 82.2 % (40-80); PLATELET COUNT 267 10x3/uL (130-400); RBC 3.22 10x6/uL (4.20-6.10); RDW 16.6 % (11.5-14.5); WBC 6.8 10x3/uL (4.8-10.8)
--- NOTE | 2019-05-23 21:00 | NUR ---
RESTING WITH EYES CLOSED, EASILY ROUSED AND ALERT. VSS
--- NOTE | 2019-05-23 23:00 | NUR ---
RESTING WITH EYES CLOSED, EASILY ROUSED AND ALERT. VSS. REASSESSMENT COMPLETED PER FLOW SHEET WITH NO ACUTE DISTRESS OBSERVED. CALL LIGHT IN REACH
[2019-05-24] VITALS (48 sets, daily range): BP systolic 94–126; BP diastolic 41–78
--- NOTE | 2019-05-24 01:00 | NUR ---
RESTING WITH EYES CLOSED, EASILY ROUSED AND ALERT. VSS
[2019-05-24 01:29] LABS: BASOPHILS 0 % (0-2); EOSINOPHILS 0.2 % (0-7); HEMATOCRIT 24.7 % (42.0-54.0); HEMOGLOBIN 8.4 g/dL (13.5-17.5); IMMATURE GRANULOCYTES 0.4 % (0-5); LYMPHOCYTES 14.5 % (15-50); MCH 29.4 pg (26.0-34.0); MCV 86.4 fL (80.0-100.0); MEAN PLATELET VOLUME 9.8 fL (7.4-10.4); MONOCYTES 9.3 % (2-11); NEUTROPHILS 75.6 % (40-80); PLATELET COUNT 239 10x3/uL (130-400); RBC 2.86 10x6/uL (4.20-6.10)
[2019-05-24 01:30] LABS: WBC 4.6 10x3/uL (4.8-10.8)
--- NOTE | 2019-05-24 03:00 | NUR ---
REASSESSMENT COMPLETED PER FLOW SHEET WITH NO CHANGES OR ACUTE DISTRESS OBSERVED. VSS
--- NOTE | 2019-05-24 05:00 | NUR ---
RESTING WITH EYES CLOSED. EASILY ROUSED AND ALERT. VSS
[2019-05-24 05:14] LABS: BASOPHILS 0 % (0-2); EOSINOPHILS 0.3 % (0-7); IMMATURE GRANULOCYTES 0.6 % (0-5); LYMPHOCYTES 5.8 % (15-50); MCH 29.8 pg (26.0-34.0); MCHC 34.8 g/dL (31.0-37.0); MCV 85.7 fL (80.0-100.0); MEAN PLATELET VOLUME 9.8 fL (7.4-10.4); MONOCYTES 17.5 % (2-11); NEUTROPHILS 75.8 % (40-80); PLATELET COUNT 220 10x3/uL (130-400); RBC 2.45 10x6/uL (4.20-6.10); RDW 16.9 % (11.5-14.5)
[2019-05-24 05:31] LABS: ANION GAP 16.4 mmol/L (8-16); CARBON DIOXIDE 21.2 mmol/L (21.0-32.0); CREATININE - SERUM 7.7 mg/dL (0.6-1.3); PHOSPHOROUS 4.3 mg/dL (2.5-4.9); POTASSIUM - SERUM 4.6 mmol/L (3.5-5.1)
[2019-05-24 05:50] LABS: WBC 3.4 10x3/uL (4.8-10.8)
[2019-05-24 05:51] LABS: HEMOGLOBIN 7.3 g/dL (13.5-17.5)
--- NOTE | 2019-05-24 06:23 | NUR ---
DR. CORNEJO PAGED AT THIS TIME REGUARDING LOW HGB
--- NOTE | 2019-05-24 06:37 | NUR ---
SPOKE WITH DR. STONE. NOTIFIED OF LOW HGB, NEW ORDERS RECEIVED
[2019-05-24 17:20] LABS: BASOPHILS 0.3 % (0-2); EOSINOPHILS 0.3 % (0-7); IMMATURE GRANULOCYTES 0.5 % (0-5); LYMPHOCYTES 11.9 % (15-50); MCHC 35.1 g/dL (31.0-37.0); MCV 85.4 fL (80.0-100.0); MEAN PLATELET VOLUME 9.9 fL (7.4-10.4); MONOCYTES 11.9 % (2-11); NEUTROPHILS 75.1 % (40-80); WBC 3.9 10x3/uL (4.8-10.8)
[2019-05-24 17:28] LABS: RBC 3.97 10x6/uL (4.20-6.10)
--- NOTE | 2019-05-24 17:28 | MORECARE ---
CASE MANAGEMENT DISCHARGE SUMMARY PATIENT: MARIA ANTONIA DEAN UNIT: [id number] ADM DATE: 05/15/19 AGE: 74 : 45 SEX: M ROOM/BED: D.2305 AUTHOR: BETH,DOC PHYSICIAN: REFERRING PHYSICIAN: HELEN HUMMEL MD DATE OF SERVICE: 05/24/19 Discharge Plan Patient Name: MARIA ANTONIA DEAN [facility] [facility] 1945 Planned Disposition: Inpatient Rehab Anticipated Discharge Date: 05/21/19 Discharge Date: Expected LOS: 6 Initial Reviewer: [id number] Initial Review Date: 05/17/2019 Generated: 05/24/19 6:28 pm Comments DCP- Discharge Planning Updated by [id number]: Camelia Bean on 05/24/19 4:[address] Patient Name: MARIA ANTONIA DEAN Admission Status: ER Accout number: [id number] Admission Date: 05-15-2019 : 1945 Admission Diagnosis:MALIGNANT NEOPLASM OF LIVER, PRIMARY, UNSPECIFIED TO Attending: HELEN HUMMEL Current LOS: 9 Anticipated DC Date: 05-21-2019 Planned Disposition: Inpatient Rehab Primary Insurance: MEDICARE A & B Discharge Planning Comments: CM FOLLOWED UP WITH PATIENT TODAY. HE STATES HE WANTS [facility], HE IS NOT SURE WHEN HIS NEXT CHEMO WOULD BE. HE IS ALSO ON HD MWF, STATES HAS BEEN ON HD FOR 6 YEARS. CM TO FOLLOW AND ASSIST. Clinical Engineering Director: Camelia Bean DCP- Discharge Planning Updated by [id number]: Pop Mazariegos on 05/20/19 3:[address] Patient Name: MARIA ANTONIA DEAN Encounter No: [id number] : 1945 Primary Insurance: MEDICARE A & B Anticipated DC Date: 05-21-2019 Planned Disposition: Inpatient Rehab External Planned Provider: [facility] INPATIENT REHAB DCP follow-up note: CM REVIEWED CHART, MET WITH PT'S SPOUSE IN ROOM, PT IN DIALYSIS. PT'S SPOUSE REPORTS PT IS TOO WEAK AND "SHAKEY" TO GO HOME AT THIS TIME AND THEY HAVE DECIDED TO DO REHAB HERE AT [facility]. CM RECEIVED ORDER FOR INPATIENT REHAB PRESCREENING. CM WAITING INPATIENT REHAB PRESCREENING AND ADMISSION DETERMINATION FROM [facility] INPATIENT REHAB. Pop Mazariegos CASE MANGEMENT DCP- Discharge Planning Updated by [id number]: Pop Mazariegos on 05/17/19 10:[address] Patient Name: MARIA ANTONIA DEAN Encounter No: [id number] : 1945 Primary Insurance: MEDICARE A & B Anticipated DC Date: Planned Disposition: Home DISCHARGE PLANNING NOTE: CM MET WITH PT IN ROOM TO DISCUSS DISCHARGE PLANNING AND NEEDS. MARIA ANTONIA DEAN provided verbal consent to discuss current and ongoing needs with/in the presence of: SPOUSE, WINDY. PT REPORTS LIVING AT HOME INDEPENDENTLY HIS SPOUSE. PT HAS 2 CANES THAT HE DOES NOT USE. PT HAS NO MEDICAL EQUIPMENT PROVIDER PREFERENCE. PT HAS NO OUTSIDE SERVICES ASSISTING IN THE HOME. PT'S SPOUSE TRANSPORTS PT TO OUTPATIENT DIALYSIS AT [facility], MWF, 0600AM. CM DISCUSSED AVAILABILITY OF HOME HEALTH, REHAB SERVICES AND MEDICAL EQUIPMENT. PT DENIES DISCHARGE NEEDS, PT'S REPORTS SHE WILL PICK PT UP FOR DISCHARGE HOME. PT PLANS TO DISCHARGE HOME WITH SPOUSE, HAS NO ANTICIPATED DISCHARGE NEEDS. CM TO FOLLOW AND ASSIST IF NEEDED. POP MAZARIEGOS CASE MANAGEMENT DCPIA - Discharge Planning Initial Assessment Updated by [id number]: Pop Mazariegos on 05/17/19 11:51 am * Is the patient Alert and Oriented? Yes * How many steps to enter\\exit or inside your home? * PCP DR. RONNIE SENA * Pharmacy [facility]. * Preadmission Environment Home with Family * ADLs Partial Dependent * Partial ADLs (Assistance needed) Medication Management * Equipment Cane * Other Equipment NO MEDICAL EQUIPMENT PROVIDER PREFERENCE * List name and contact numbers for known caregivers / representatives who currently or will assist patient after discharge: WINDY DEAN, SPOUSE, * Verbal permission to speak to the caregivers and representatives has been obtained from the patient. N/A * Community resources currently utilized Other * Please name any agencies selected above. OUTPATIENT DIALYSIS, [facility], [place], 0600 AM, [facility]OUSE DRIVES * Additional services required to return to the preadmission environment? No * Can the patient safely return to the preadmission environment? Yes * Has this patient been hospitalized within the prior 30 days at any hospital? No Coverage Notice Reviewer: [id number] - Pop Mazariegos Notice Issued Date-Time: 05/20/2019 11:30 Notice Type: Patient Choice Letter Notice Delivered To: Family Member Relationship to Patient: Spouse Trip Follower Name: GRETA DEAN Delivery Method: HAND - Hand Delivered [place] Days: Prior Verbal Notification: Recipient Understood Notice: Yes Recipient Signature: Yes Med Rec Note Co-signed by Attending: Coverage Notice Comment: [facility] PATIENT Reviewer: [id number] Carlos Mazariegos Notice Issued Date-Time: 05/20/2019 11:30 Notice Type: IM Discharge Notice Notice Delivered To: Family Member Relationship to Patient: Spouse Trip Follower Name: GRETA DEAN Delivery Method: HAND - Hand Delivered [place] Days: Prior Verbal Notification: Recipient Understood Notice: Yes Recipient Signature: Yes Med Rec Note Co-signed by Attending: Coverage Notice Comment: Last DP export: 05/20/19 3:51 pm Patient Name: MARIA ANTONIA DEAN Page [phone] at 1728 All edits/amendments must be made on the electronic document DICTATION DATE: 05/24/191726 MULTIFOCAL LENS ASSEMBLER: YUAN 05/24/191726 RPT#: [id number] DC DATE: STATUS: ADM IN [facility] [address] [place] [address] END OF REPORT
[2019-05-24 17:29] LABS: HEMATOCRIT 33.9 % (42.0-54.0); HEMOGLOBIN 11.9 g/dL (13.5-17.5); PLATELET COUNT 275 10x3/uL (130-400)
--- NOTE | 2019-05-24 19:00 | NUR ---
RECEIVED PATIENT IN BED. AWAKE AND ALERT. ORIENTED X 4. SPEECH CLEAR. MONITORS CONNECTED TO PATIENT WITH ALARMS SET. VSS. ASSESSMENT COMPLETED WITH NO ACUTE DISTRESS OBSERVED AT PRESENT. CALL LIGHT IN REACH
--- NOTE | 2019-05-24 21:00 | NUR ---
AWAKE AND ALERT. VISITING WITH AT BEDSIDE. VSS
[2019-05-25] VITALS (19 sets, daily range): BP systolic 95–140; BP diastolic 52–70
[2019-05-25 00:21] LABS: BASOPHILS 0.3 % (0-2); EOSINOPHILS 0.3 % (0-7); IMMATURE GRANULOCYTES 0.6 % (0-5); LYMPHOCYTES 9.3 % (15-50); MCH 29.2 pg (26.0-34.0); MCHC 34.7 g/dL (31.0-37.0); MCV 84.3 fL (80.0-100.0); MEAN PLATELET VOLUME 9.3 fL (7.4-10.4); MONOCYTES 14.7 % (2-11); NEUTROPHILS 74.8 % (40-80); PLATELET COUNT 226 10x3/uL (130-400); RBC 3.18 10x6/uL (4.20-6.10); RDW 16.2 % (11.5-14.5); WBC 3.3 10x3/uL (4.8-10.8)
[2019-05-25 00:34] LABS: HEMATOCRIT 26.8 % (42.0-54.0); HEMOGLOBIN 9.3 g/dL (13.5-17.5)
--- NOTE | 2019-05-25 01:00 | NUR ---
RESTING WITH EYES CLOSED, EASILY ROUSED AND ALERT. VSS
--- NOTE | 2019-05-25 05:00 | NUR ---
RESTING WITH EYES CLOSED, EASILY ROUSED AND ALERT. VSS
[2019-05-25 05:08] LABS: BASOPHILS 0.3 % (0-2); EOSINOPHILS 0.5 % (0-7); HEMATOCRIT 29.4 % (42.0-54.0); HEMOGLOBIN 9.9 g/dL (13.5-17.5); IMMATURE GRANULOCYTES 0.5 % (0-5); LYMPHOCYTES 6.6 % (15-50); MCH 28.9 pg (26.0-34.0); MCHC 33.7 g/dL (31.0-37.0); MONOCYTES 19.7 % (2-11); NEUTROPHILS 72.4 % (40-80); PLATELET COUNT 251 10x3/uL (130-400); RBC 3.42 10x6/uL (4.20-6.10); RDW 16.5 % (11.5-14.5); WBC 3.8 10x3/uL (4.8-10.8)
[2019-05-25 06:03] LABS: ANION GAP 15.3 mmol/L (8-16); CALCIUM 7.4 mg/dL (8.5-10.1); CREATININE - SERUM 5.9 mg/dL (0.6-1.3); POTASSIUM - SERUM 4.2 mmol/L (3.5-5.1)
[2019-05-25 06:06] LABS: CARBON DIOXIDE 26.9 mmol/L (21.0-32.0)
--- NOTE | 2019-05-25 07:00 | NUR ---
SHIFT ASSESSMENT COMPELTED, PT CARE ASSUMED, MONITORS ON AND WORKING, VITALS STBALE, PT SITTING UP IN CHAIR AT BEDSIDE, PT ASSISTED BACK INTO BED AT THIS TIME PER PTS REQUEST, PT TOLERATED WELL. CALL LIGHT WITHIN REACH SEE FLOW SHEET FOR FURTHER DETAILS. WILL CONTINUE TO OBSERVE.
--- NOTE | 2019-05-25 09:00 | NUR ---
PT SITTING UP IN BED, FAMILY AT BEDSIDE, UPDATE PROVIDED, MONITORS ON AND WORKING, VITALS STABLE, WILL CONTINUE TO OBSERVE.
--- NOTE | 2019-05-25 09:30 | NUR ---
CALLED DR QUIROS OFFICE CONCERNING PTS NEXT ROUND OF CHEMO, LEFT MESSAGE WITH NURSE, WAITING ON PHONE CALL BACK.
--- NOTE | 2019-05-25 11:00 | NUR ---
PT SITTING UP IN BED EATING LUNCH, FAMILY AT BEDSIDE. MONITORS ON AND WORKING, VITALS STABLE. CALL LIGHT WITHIN REACH, SEE FLOW SHEET FOR FURTHER DETAILS. WILL CONTINUE TO OBSERVE.
--- NOTE | 2019-05-25 11:55 | NUR ---
Nutrition follow-up: Pt now in ICU due to GI bleed Diet advanced to clear liquids Labs reivewed Wt: 160# Will monitor patients diet advancement
[2019-05-25 12:46] LABS: BASOPHILS 0 % (0-2); EOSINOPHILS 0.3 % (0-7); HEMATOCRIT 28.4 % (42.0-54.0); HEMOGLOBIN 9.7 g/dL (13.5-17.5); IMMATURE GRANULOCYTES 0.3 % (0-5); LYMPHOCYTES 6.4 % (15-50); MCH 29.6 pg (26.0-34.0); MCHC 34.2 g/dL (31.0-37.0); MCV 86.6 fL (80.0-100.0); MEAN PLATELET VOLUME 9.5 fL (7.4-10.4); MONOCYTES 20.9 % (2-11); NEUTROPHILS 72.1 % (40-80); PLATELET COUNT 254 10x3/uL (130-400); RBC 3.28 10x6/uL (4.20-6.10); RDW 16.6 % (11.5-14.5); WBC 3.7 10x3/uL (4.8-10.8)
--- NOTE | 2019-05-25 13:00 | NUR ---
PT SITTING UP IN CHAIR, PT TOLERATED WELL. MONITORS ON AND WORKING, VITALS STABLE. CALL LIGHT WITHIN REACH, WILL CONTINUE TO OBSERVE.
--- NOTE | 2019-05-25 14:00 | NUR ---
PT ON BEDSIDE COMMODE. SMALL DARK STOOL NOTED AND SAMPLE COLLECTED FOR OCCULT BLOOD.
--- NOTE | 2019-05-25 15:00 | NUR ---
PT ASSISTED BACK INTO BED WITH MINIMAL ASSITANCE, MONITORS ON AND WORKING, VITALS STABLE, CALL LIGHT WITHIN REACH, SEE FLOW SHEET FOR FURTHER DETAILS.
--- NOTE | 2019-05-25 17:00 | NUR ---
PT LYING IN BED RESTING, MONITORS ON AND WORKING, VITALS STABLE. AT BEDSIDE, UPDATE PROVIDED. NO SIGNS/SYMPTOMS OF PAIN OR DISCOMFORT NOTED AT THIS TIME, WILL CONTINUE TO OBSERVE.
[2019-05-25 17:50] LABS: BASOPHILS 0 % (0-2); EOSINOPHILS 0.6 % (0-7); HEMATOCRIT 28.4 % (42.0-54.0); HEMOGLOBIN 9.5 g/dL (13.5-17.5); IMMATURE GRANULOCYTES 0.3 % (0-5); LYMPHOCYTES 11.9 % (15-50); MCHC 33.5 g/dL (31.0-37.0); MCV 86.6 fL (80.0-100.0); MEAN PLATELET VOLUME 9.1 fL (7.4-10.4); NEUTROPHILS 72.2 % (40-80); PLATELET COUNT 236 10x3/uL (130-400); RBC 3.28 10x6/uL (4.20-6.10); RDW 16.5 % (11.5-14.5); WBC 3.3 10x3/uL (4.8-10.8)
--- NOTE | 2019-05-25 19:20 | NUR ---
PT RESTING QUIELTY, AROUSES EASILY, AOX4. REPOSITIONED WITH MINIMAL ASSISTANCE, PROMINENCES BRIDGED. DENIES NEEDS AT THIS TIME. SEE FLOWSHEET FOR SHIFT ASSESSMENT. VSS, CPOC.
--- NOTE | 2019-05-25 21:20 | NUR ---
HS MEDS GIVEN, PRN PAIN MEDICATION ADMINISTERED UPON REQUEST. PT REPOSITIONED WITH LINEN CHANGE PROVIDED, PROMINENCES BRIDGED. DENIES FURTHER NEEDS AT THIS TIME. CALL LIGHT AND BEDSIDE TABLE WITHIN PT REACH. CPOC.
--- NOTE | 2019-05-25 23:20 | NUR ---
NO CHANGES NOTED AT THIS TIME. PT REPOSITIONED SELF INDEPENDENTLY. FRESH WATER PROVIDED. VSS, DENIES FURTHER NEEDS. CALL LIGHT AND BEDSIDE TABLE WITHIN PT REACH. CPOC.
--- NOTE | 2019-05-26 01:20 | NUR ---
PT SLEEPING QUIETLY WITH UNLABORED RESPIRATIONS, REPOSITIONED SELF INDEPENDENTLY. VSS, NO S/S OF ACUTE DISTRESS NOTED AT THIS TIME. ROOM VISIBLE FROM NURSES STATION, CALL LIGHT WITHIN PT REACH. CPOC.
[2019-05-26 03:00] VITALS: BP 140/67
--- NOTE | 2019-05-26 03:20 | NUR ---
NO CHANGES AT THIS TIME, PT SLEEPING QUIELTY WITH VSS, UNLABORED RESPIRATIONS. AROUSES EASILY, AOX4. REPOSITIONED FOR COMFORT WITH PROMINENCES BRIDGED. CALL LIGHT WITHIN PT REACH. CPOC.
[2019-05-26 07:00] VITALS: BP 133/61
--- NOTE | 2019-05-26 07:00 | NUR ---
SHIFT ASSESSMENT COMPLETED. PT CARE ASSUMED. MONITORS ON AND WORKING, VITALS STABLE, NO SIGNS/SYMPTOMS OF PAIN OR DISCOMFORT NOTED. CALL LIGHT WITHIN REACH, SEE FLOW SHEET FOR FURTHER DETAILS. WILL CONTINUE TO OBSERVE.
--- NOTE | 2019-05-26 08:07 | NUR ---
COMPLETE CHG BATH AND LINEN CHANGE DONE AT THIS TIME, PT SITTING UP IN CHAIR EATNG BREAKFAST. AT BEDSIDE, UPDATE PROVIDED. CALL LIGHT WITHIN REACH, WILL CONTINUE TO OBSERVE.
[2019-05-26 08:51] LABS: ANION GAP 17.3 mmol/L (8-16); BASOPHILS 0.3 % (0-2); CARBON DIOXIDE 22.7 mmol/L (21.0-32.0); CREATININE - SERUM 6.5 mg/dL (0.6-1.3); HEMATOCRIT 27.4 % (42.0-54.0); HEMOGLOBIN 9.5 g/dL (13.5-17.5); LYMPHOCYTES 10.3 % (15-50); MCH 29.7 pg (26.0-34.0); MCHC 34.7 g/dL (31.0-37.0); MCV 85.6 fL (80.0-100.0); MEAN PLATELET VOLUME 9.3 fL (7.4-10.4); NEUTROPHILS 68.4 % (40-80); PLATELET COUNT 265 10x3/uL (130-400); RDW 16.5 % (11.5-14.5); WBC 3.1 10x3/uL (4.8-10.8)
[2019-05-26 11:00] VITALS: BP 123/70
[2019-05-26 17:04] VITALS: BP 120/53
--- NOTE | 2019-05-26 19:46 | NUR ---
PT EMERGENCY LIGHT GOING OFF, PT HAD DARK BLACK BM. ASSISTED PT BACK TO BED. PT RESTING COMFORTABLY. FALL PRECAUTIONS IN PLACE. BED LOWERED AND LOCKED. CL IN REACH. WILL CTM.
--- NOTE | 2019-05-26 19:46 | NUR ---
EVENING ROUNDS MADE. PT LAYING IN BED RESTING. FAMILY AT BEDSIDE. DENIES PAIN AT THIS TIME. DENIES FURTHER NEEDS. FALL PRECAUTIONS IN PLACE. WILL CTM.
[2019-05-26 20:00] VITALS: BP 124/66
[2019-05-27] VITALS: BP 128/64
--- NOTE | 2019-05-27 03:27 | NUR ---
I have reviewed this patient and I concur with the Shift Assessment completed by the Licensed Practical Nurse today this shift.
[2019-05-27 04:00] VITALS: BP 126/60
--- NOTE | 2019-05-27 08:24 | NUR ---
PT AWAKE AND ORIENTED, AND FAMILY FRIEND AT BEDSIDE. HE STATES HE IS PRETTY CONTENT TODAY AND LOOKS FORWARD TO GOING HOME WHEN HE'S ABLE. NO COMPLAINTS/CONCERNS/QUESTIONS AT THIS TIME. CL IN REACH, SRX2.
[2019-05-27 08:38] VITALS: BP 113/64
[2019-05-27 12:20] VITALS: BP 125/60
--- NOTE | 2019-05-27 12:59 | NUR ---
DIALYSIS COORDINATOR: SOPHIA SAINZ MWF 5:45AM. CJ MEDEL.
--- NOTE | 2019-05-27 14:44 | NUR ---
I have reviewed this patient and I concur with the Shift Assessment completed by the Licensed Practical Nurse today this shift.
[2019-05-27 16:56] VITALS: BP 120/70
--- NOTE | 2019-05-27 19:23 | NUR ---
GREETED PATIENT AND INTRODUCED MYSELF. PATIENT IS LAYING IN BED SEEMS VERY SLEEPY. FAMILY MEMBER AT BEDSIDE AND STATES THAT HE HAS BEEN SLEEPING MOST OF THE DAY. PT. STATES THAT PAIN IS 0/10. RESPIRATIONS EVEN. NO S/S OF DISTRESS. PATIENT DENIES ANY NEEDS AT THIS TIME. CALL LIGHT IN REACH.
[2019-05-27 20:00] VITALS: BP 129/75
--- NOTE | 2019-05-27 23:11 | NUR ---
PATIENT WAS SITTING ON SIDE OF BED. REPOSITIONED PATIENT IN BED AFTER ADMINISTRATION OF PAIN MEDICATION. FAMILY MEMBER AT BEDSIDE. CALL LIGHT IN REACH.
[2019-05-28] VITALS: BP 102/80; BP 133/43
--- NOTE | 2019-05-28 02:00 | NUR ---
PATIENT RESTING QUIETLY. RESPIRATIONS EVEN. NO S/S OF DISTRESS. SR UP X 2. BED IN LOWEST POSITION. FAMILY MEMBER ASLEEP IN CHAIR AT BEDSIDE. CALL LIGHT IN REACH.
[2019-05-28 04:00] VITALS: BP 135/55
[2019-05-28 05:11] LABS: BASOPHILS 0.3 % (0-2); EOSINOPHILS 0.8 % (0-7); HEMATOCRIT 28.4 % (42.0-54.0); HEMOGLOBIN 9.6 g/dL (13.5-17.5); IMMATURE GRANULOCYTES 1.4 % (0-5); LYMPHOCYTES 12.5 % (15-50); MCH 28.9 pg (26.0-34.0); MCHC 33.8 g/dL (31.0-37.0); MCV 85.5 fL (80.0-100.0); MEAN PLATELET VOLUME 9.1 fL (7.4-10.4); MONOCYTES 18.1 % (2-11); NEUTROPHILS 66.9 % (40-80); PLATELET COUNT 325 10x3/uL (130-400); RBC 3.32 10x6/uL (4.20-6.10); RDW 16.2 % (11.5-14.5); WBC 3.6 10x3/uL (4.8-10.8)
[2019-05-28 05:12] LABS: ALBUMIN 1.6 g/dL (3.4-5.0); ANION GAP 13.5 mmol/L (8-16); BILIRUBIN - TOTAL 1.21 mg/dL (0.2-1.3); CARBON DIOXIDE 24.3 mmol/L (21.0-32.0); CREATININE - SERUM 6.5 mg/dL (0.6-1.3); PHOSPHOROUS 3.5 mg/dL (2.5-4.9); POTASSIUM - SERUM 3.8 mmol/L (3.5-5.1); PROTEIN - SERUM 4.6 g/dL (6.4-8.2)
[2019-05-28 07:31] LABS: HEMATOCRIT 25.6 % (42.0-54.0); HEMOGLOBIN 8.7 g/dL (13.5-17.5)
--- NOTE | 2019-05-28 07:53 | NUR ---
0713--CALLED RR. PT SITTING UP IN BED, 200CC CONGEALED DARK BLOODY STOOL NOTED. VS 176/95, HR 79, RESP 20 O2SAT 100% ON RA. STAT H/H ORDERED, KUB ORDERED. DR HUMMEL NOTIFIED OF H/H DROP FROM 9.6/28.4 TO 8.7/25.6 AND TRENDING BP 111/55 126/63 132/57. ORDERS TO REMAIN IN ROOM, MAKE SURE PROTONIX 40MG IV Q12H ORDERED AND TYPE AND SCREEN DONE. NO PRBC TO BE GIVEN AT THIS TIME.
--- NOTE | 2019-05-28 07:55 | NUR ---
WHILE RECIEVING REPORT, PTS STARTED SCREAMING SHE NEEDED HELP. RAN INTO PTS ROOM TO FIND HIM SITTING ON THE BED VOMMITING. PT WAS BLEEDING FROM HIS ANUS, SMEEL TYPICAL OF A GI BLEED. HE SOAKED THROUGH THE BED. PT REPORTS HURTING AND FEELING UNWELL AND NAUSEAUS. IS CRYING. CALLED RAPID RESPONSE (SEE ICU NURSES NOTES). PT IS NOW CLEANED UP, STILL BLEEDING SLOWLY OUT OF THE ANUS. PT STATES HE FELS COLD AND SHAKY AND UNWELL. DR. HUMMEL TOLD US JUST TO WATCH TO THE PT CLOSESLY. PT WAS CLEANED UP, CURRENTLY C/D IN BED. BACK AT BEDSIDE. CL IN REACH, SRX2.
[2019-05-28 09:13] LABS: HEMATOCRIT 22.5 % (42.0-54.0); HEMOGLOBIN 7.6 g/dL (13.5-17.5)
[2019-05-28 09:21] LABS: APTT 36.6 SECONDS (22.8-39.4); INR 1.37 (0.85-1.17); PROTIME 16.3 SECONDS (11.6-15.0)
--- NOTE | 2019-05-28 09:26 | NUR ---
SPOKE WITH GINA FROM [facility], SHE STATED IT WOULD BE BEST TO TRANSFER THE PT TO A HOSPITAL WITH G/I DOCTORS AVALIABLE. CM HAS BEEN CONSULTED AND WILL TRY. PTS B/P IS STILL DROPPING. MONITORING CLOSELY. HEMOGLOBIN HAS DROPPED TO 7.1.
--- NOTE | 2019-05-28 09:56 | NUR ---
SPOKE TO TRANSFER CENTER, SHE STATED SHE MAY BE ABLE TO GET PT TO [place] FOR AN ICU BED. SHE STATES IT WILL TAKE A WHILE FOR . SPOKE TO HIMANSHU FROM [facility] ABOUT THIS. SHE WILL CALL BACK
--- NOTE | 2019-05-28 11:36 | NUR ---
[facility] [place], DR NEW HAS ACCPETED THE PT INTO ICU BED 3. PAGED DR HUMMEL TO GET HIM TO SIGN THE PAPERWORK TO OK THE TRANSFER FOR THE PT, PAGED EMMANUELLE TO GET PTS D/C PUT IN. PT AND FAMILY HAVE BEEN MADE AWARE, FAMILY MEMBER IS REQUESTING TO RIDE WITH THE PT SHE HAS NO OTHER WAY AT THIS TIME. CL IN REACH, SRX2.
[2019-05-28] MEDS ORDERED: Retacrit SC (11:41)
[2019-05-28] MEDS ORDERED: ONCOLOGY MOUTHWASH PO (11:41)
[2019-05-28] MEDS ORDERED: LOPRESSOR25 MG PO (11:41)
[2019-05-28] MEDS ORDERED: Chloraseptic Spray [ TOPICAL (11:42)
[2019-05-28] MEDS ORDERED: PROTONIX IV IV (11:43)
--- NOTE | 2019-05-28 11:51 | NUR ---
SPOKE WITH DR HUMMEL, HE CLEARED PT TO TRANSFER BY [facility]. DR HUMMEL STATES HE WILL BE BACK IN ABOUT AN HOUR TO SIGN THE PAPERWORK.
[2019-05-28 12:26] LABS: HEMATOCRIT 22.2 % (42.0-54.0)
[2019-05-28 12:34] LABS: HEMOGLOBIN 7.5 g/dL (13.5-17.5)
--- NOTE | 2019-05-28 13:27 | NUR ---
DR. HUMMEL STATED NOT TO TRANSFUSE ANY BLOOD UNTIL THE PTS HEMAGLOBIN IS LESS THAN 7. PT IS CURRENTLY ABOVE 7. CALLED [facility], THEY WILL BE HERE IN 30-45 MINUTES FOR THE TRANSFER.
--- NOTE | 2019-05-28 14:05 | NUR ---
PT AWAKE AND ORIENTED, NO NEW BLOOD, WHEELCED OUT TO AMBULANCE VIA [facility] WITH 3 AMBULANCE PERSONEL. STATES SHE'S GOING HOME BUT WILL BE COMING UP TOMORROW. CL IN REACH, SRX2.
--- NOTE | 2019-05-28 16:05 | MORECARE ---
CASE MANAGEMENT DISCHARGE SUMMARY PATIENT: MARIA ANTONIA DEAN UNIT: [id number] ADM DATE: 05/15/19 AGE: 74 : 45 SEX: M ROOM/BED: D.2105 AUTHOR: BETH,DOC PHYSICIAN: REFERRING PHYSICIAN: HELEN HUMMEL MD DATE OF SERVICE: 05/28/19 Discharge Plan Patient Name: MARIA ANTONIA DEAN Facility: [facility]:[place] : 1945 Planned Disposition: Inpatient Rehab Anticipated Discharge Date: 05/21/19 Discharge Date: 05/28/2019 Expected LOS: 6 Initial Reviewer: [id number] Initial Review Date: 05/17/2019 Generated: 05/28/19 5:05 pm Comments DCP- Discharge Planning Updated by [id number]: Ailin Rodriguez on 05/28/19 3:[address] LATE ENTRY 0930 CLIPPER AUTOMATIC SPOKE WITH CM REQUESTING EMERGENCY TRANSFER FOR PATIENT W/ ACTIVE GI BLEED. A RAPID RESPONSE WAS CALLED ON THE PATIENT THIS EARLY AM. CM TELEPHONED EASY ADMIT THE TRANSFER SERVICE FOR [facility]. FAXED FACE SHEET DIRECTED. EASY ADMIT SEARCHING FOR ICU BED. [facility] HAD NO ICU BED AVAILABLE. CM REQUESTED XRAYS ON DISC. UMBRELLA TIPPER COPIED THE PATIENT CHART. COBRA AND PCS FOR INITIATED. NURSING INK PRINTER, YOMI, NOTIFIED. 1230- TELEPHONE CALL RECEIVED FROM [facility] DR NEW HAD ACCEPTED THE PATIENT. PRIMARY NURSE CALLED REPORT. COBRA FORM COMPLETED. PRIMARY NOTIFIED DR HUMMEL FOR HIS SIGNATURE ON COBRA. SHE ALSO CLARIFIED IF TRANSPORT WAS TO BE AIR OR [facility]. THE PATIENT'S AT THE BEDSIDE WAS UPDATED. INK PRINTER VISITED ON UNIT. 1400 PATIENT WAS DISCHARGED TO [facility] VIA AMBULANCE W/ 3 PERSON PERSONNEL.. PATIENT TO BE ADMITTED TO ICU BED III. NO GI SPECIALIST AVAILABLE AT [facility] ON THE WEEKEND. PATIENT WITH DECREASING H/H, ACTIVE BLEEDING, HYPOTENSION AND POST RAPID RESPONSE THIS AM. DCP- Discharge Planning Updated by [id number]: Camelia Bean on 05/24/19 4:[address] Patient Name: MARIA ANTONIA DEAN Admission Status: ER Accout number: [id number] Admission Date: 05-15-2019 : 1945 Admission Diagnosis:MALIGNANT NEOPLASM OF LIVER, PRIMARY, UNSPECIFIED TO Attending: HELEN HUMMEL Current LOS: 9 Anticipated DC Date: 05-21-2019 Planned Disposition: Inpatient Rehab Primary Insurance: MEDICARE A & B Discharge Planning Comments: CM FOLLOWED UP WITH PATIENT TODAY. HE STATES HE WANTS IPRH, HE IS NOT SURE WHEN HIS NEXT CHEMO WOULD BE. HE IS ALSO ON HD MWF, STATES HAS BEEN ON HD FOR 6 YEARS. CM TO FOLLOW AND ASSIST. Mass Spectrometry Manager: Camelia Bean DCP- Discharge Planning Updated by [email or web address]: Pop Mazariegos on 05/20/19 3:[address] Patient Name: MARIA ANTONIA DEAN Encounter No: [id number] : 1945 Primary Insurance: MEDICARE A & B Anticipated DC Date: 05-21-2019 Planned Disposition: Inpatient Rehab External Planned Provider: [facility] INPATIENT REHAB DCP follow-up note: CM REVIEWED CHART, MET WITH PT'S SPOUSE IN ROOM, PT IN DIALYSIS. PT'S SPOUSE REPORTS PT IS TOO WEAK AND "SHAKEY" TO GO HOME AT THIS TIME AND THEY HAVE DECIDED TO DO REHAB HERE AT [facility]. CM RECEIVED ORDER FOR INPATIENT REHAB PRESCREENING. CM WAITING INPATIENT REHAB PRESCREENING AND ADMISSION DETERMINATION FROM [facility] INPATIENT REHAB. ALEX Willis DCP- Discharge Planning Updated by [id number]: Pop Mazariegos on 05/17/19 10:[address] Patient Name: MARIA ANTONIA DEAN Encounter No: [id number] : 1945 Primary Insurance: MEDICARE A & B Anticipated DC Date: Planned Disposition: Home DISCHARGE PLANNING NOTE: CM MET WITH PT IN ROOM TO DISCUSS DISCHARGE PLANNING AND NEEDS. MARIA ANTONIA DEAN provided verbal consent to discuss current and ongoing needs with/in the presence of: SPOUSE, WINDY. PT REPORTS LIVING AT HOME INDEPENDENTLY HIS SPOUSE. PT HAS 2 CANES THAT HE DOES NOT USE. PT HAS NO MEDICAL EQUIPMENT PROVIDER PREFERENCE. PT HAS NO OUTSIDE SERVICES ASSISTING IN THE HOME. PT'S SPOUSE TRANSPORTS PT TO OUTPATIENT DIALYSIS AT [facility], [place], 0600AM. CM DISCUSSED AVAILABILITY OF HOME HEALTH, REHAB SERVICES AND MEDICAL EQUIPMENT. PT DENIES DISCHARGE NEEDS, PT'S REPORTS SHE WILL PICK PT UP FOR DISCHARGE HOME. PT PLANS TO DISCHARGE HOME WITH SPOUSE, HAS NO ANTICIPATED DISCHARGE NEEDS. CM TO FOLLOW AND ASSIST IF NEEDED. POP MAZARIEGOS, CASE MANAGEMENT DCPIA - Discharge Planning Initial Assessment Updated by [email or web address]: Pop Mazariegos on 05/17/19 11:51 am * Is the patient Alert and Oriented? Yes * How many steps to enter\\exit or inside your home? * PCP DR. RONNIE SENA * Pharmacy [facility]. * Preadmission Environment Home with Family * ADLs Partial Dependent * Partial ADLs (Assistance needed) Medication Management * Equipment Cane * Other Equipment NO MEDICAL EQUIPMENT PROVIDER PREFERENCE * List name and contact numbers for known caregivers / representatives who currently or will assist patient after discharge: WINDY DEAN, SPOUSE, * Verbal permission to speak to the caregivers and representatives has been obtained from the patient. N/A * Community resources currently utilized Other * Please name any agencies selected above. OUTPATIENT DIALYSIS, [facility], MWF, 0600 AM, [facility]IV[facility] * Additional services required to return to the preadmission environment? No * Can the patient safely return to the preadmission environment? Yes * Has this patient been hospitalized within the prior 30 days at any hospital? No Coverage Notice Reviewer: [id number] Carlos Mazariegos Notice Issued Date-Time: 05/20/2019 11:30 Notice Type: Patient Choice Letter Notice Delivered To: Family Member Relationship to Patient: Spouse Waste Duster Name: GRETA DEAN Delivery Method: HAND - Hand Delivered [place] Days: Prior Verbal Notification: Recipient Understood Notice: Yes Recipient Signature: Yes Med Rec Note Co-signed by Attending: Coverage Notice Comment: [facility] PATIENT Reviewer: [id number] Carlos Mazariegos Notice Issued Date-Time: 05/20/2019 11:30 Notice Type: IM Discharge Notice Notice Delivered To: Family Member Relationship to Patient: Spouse Waste Duster Name: GRETA DEAN Delivery Method: HAND - Hand Delivered [place] Days: Prior Verbal Notification: Recipient Understood Notice: Yes Recipient Signature: Yes Med Rec Note Co-signed by Attending: Coverage Notice Comment: Last DP export: 05/24/19 4:28 pm Patient Name: MARIA ANTONIA DEAN Page [id number] at 1605 All edits/amendments must be made on the electronic document DICTATION DATE: 05/28/19 1600 ASSISTANT CASE MANAGER: YUAN 05/28/19 160 RPT#: [id number] DC DATE:05/28/19 STATUS: DIS IN [facility] [address] [place] [address] END OF REPORT
--- NOTE | 2019-05-28 16:12 | MORECARE ---
CASE MANAGEMENT DISCHARGE SUMMARY PATIENT: MARIA ANTONIA DEAN UNIT: [id number] ADM DATE: 05/15/19 AGE: 74 : 45 SEX: M ROOM/BED: D.2102 AUTHOR: BETH,DOC PHYSICIAN: REFERRING PHYSICIAN: HELEN HUMMEL MD DATE OF SERVICE: 05/28/19 Discharge Plan Patient Name: MARIA ANTONIA DEAN Facility: [facility]:[place] : 1945 Planned Disposition: Inpatient Rehab Anticipated Discharge Date: 05/21/19 Discharge Date: 05/28/2019 Expected LOS: 6 Initial Reviewer: [id number] Initial Review Date: 05/17/2019 Generated: 05/28/19 5:12 pm Comments DCP- Discharge Planning Updated by [id number]: Ailin Rodriguez on 05/28/19 3:[address] LATE ENTRY 0930 COLOR STRIPPER SPOKE WITH CM REQUESTING EMERGENCY TRANSFER FOR PATIENT W/ ACTIVE GI BLEED. A RAPID RESPONSE WAS CALLED ON THE PATIENT THIS EARLY AM. CM TELEPHONED EASY ADMIT THE TRANSFER SERVICE FOR [facility]. FAXED FACE SHEET DIRECTED. EASY ADMIT SEARCHING FOR ICU BED. [facility] HAD NO ICU BED AVAILABLE. CM REQUESTED XRAYS ON DISC. NIB ASSEMBLER COPIED THE PATIENT CHART. COBRA AND PCS FOR INITIATED. NURSING UPHOLSTERY INSTRUCTOR, YOMI, NOTIFIED. 1230- TELEPHONE CALL RECEIVED FROM [facility] DR NEW HAD ACCEPTED THE PATIENT. PRIMARY NURSE CALLED REPORT. COBRA FORM COMPLETED. PRIMARY NOTIFIED DR HUMMEL FOR HIS SIGNATURE ON COBRA. SHE ALSO CLARIFIED IF TRANSPORT WAS TO BE AIR OR GROUND AMBULANCE. THE PATIENT'S AT THE BEDSIDE WAS UPDATED. UPHOLSTERY INSTRUCTOR VISITED ON UNIT. 1400 PATIENT WAS DISCHARGED TO [facility] VIA AMBULANCE W/ 3 PERSON PERSONNEL.. PATIENT TO BE ADMITTED TO ICU BED III. NO GI SPECIALIST AVAILABLE AT [facility] ON THE WEEKEND. PATIENT WITH DECREASING H/H, ACTIVE BLEEDING, HYPOTENSION AND POST RAPID RESPONSE THIS AM. DCP- Discharge Planning Updated by [id number]: Camelia Bean on 05/24/19 4:[address] Patient Name: MARIA ANTONIA DEAN Admission Status: ER Accout number: [id number] Admission Date: 05-15-2019 : 1945 Admission Diagnosis:MALIGNANT NEOPLASM OF LIVER, PRIMARY, UNSPECIFIED TO Attending: HELEN HUMMEL Current LOS: 9 Anticipated DC Date: 05-21-2019 Planned Disposition: Inpatient Rehab Primary Insurance: MEDICARE A & B Discharge Planning Comments: CM FOLLOWED UP WITH PATIENT TODAY. HE STATES HE WANTS IPRH, HE IS NOT SURE WHEN HIS NEXT CHEMO WOULD BE. HE IS ALSO ON HD MWF, STATES HAS BEEN ON HD FOR 6 YEARS. CM TO FOLLOW AND ASSIST. Sewer Tapper: Camelia Bean DCP- Discharge Planning Updated by [id number]: Pop Mazariegos on 05/20/19 3:[address] Patient Name: MARIA ANTONIA DEAN Encounter No: [id number] : 1945 Primary Insurance: MEDICARE A & B Anticipated DC Date: 05-21-2019 Planned Disposition: Inpatient Rehab External Planned Provider: [facility] INPATIENT REHAB DCP follow-up note: CM REVIEWED CHART, MET WITH PT'S SPOUSE IN ROOM, PT IN DIALYSIS. PT'S SPOUSE REPORTS PT IS TOO WEAK AND "SHAKEY" TO GO HOME AT THIS TIME AND THEY HAVE DECIDED TO DO REHAB HERE AT [facility]. CM RECEIVED ORDER FOR INPATIENT REHAB PRESCREENING. CM WAITING INPATIENT REHAB PRESCREENING AND ADMISSION DETERMINATION FROM [facility] INPATIENT REHAB. ALEX Willis DCP- Discharge Planning Updated by [id number]: Pop Mazariegos on 05/17/19 10:[address] Patient Name: MARIA ANTONIA DEAN Encounter No: [id number] : 1945 Primary Insurance: MEDICARE A & B Anticipated DC Date: Planned Disposition: Home DISCHARGE PLANNING NOTE: CM MET WITH PT IN ROOM TO DISCUSS DISCHARGE PLANNING AND NEEDS. MARIA ANTOINA DEAN provided verbal consent to discuss current and ongoing needs with/in the presence of: SPOUSE, WINDY. PT REPORTS LIVING AT HOME INDEPENDENTLY HIS SPOUSE. PT HAS 2 CANES THAT HE DOES NOT USE. PT HAS NO MEDICAL EQUIPMENT PROVIDER PREFERENCE. PT HAS NO OUTSIDE SERVICES ASSISTING IN THE HOME. PT'S SPOUSE TRANSPORTS PT TO OUTPATIENT DIALYSIS AT [facility], [place], 0600AM. CM DISCUSSED AVAILABILITY OF HOME HEALTH, REHAB SERVICES AND MEDICAL EQUIPMENT. PT DENIES DISCHARGE NEEDS, PT'S REPORTS SHE WILL PICK PT UP FOR DISCHARGE HOME. PT PLANS TO DISCHARGE HOME WITH SPOUSE, HAS NO ANTICIPATED DISCHARGE NEEDS. CM TO FOLLOW AND ASSIST IF NEEDED. POP MAZARIEGOS, CASE MANAGEMENT DCPIA - Discharge Planning Initial Assessment Updated by [email or web address]: Pop Mazariegos on 05/17/19 11:51 am * Is the patient Alert and Oriented? Yes * How many steps to enter\\exit or inside your home? * PCP DR. RONNIE SENA * Pharmacy [facility]. * Preadmission Environment Home with Family * ADLs Partial Dependent * Partial ADLs (Assistance needed) Medication Management * Equipment Cane * Other Equipment NO MEDICAL EQUIPMENT PROVIDER PREFERENCE * List name and contact numbers for known caregivers / representatives who currently or will assist patient after discharge: WINDY DEAN, SPOUSE, * Verbal permission to speak to the caregivers and representatives has been obtained from the patient. N/A * Community resources currently utilized Other * Please name any agencies selected above. OUTPATIENT DIALYSIS, [facility], MWF, 0600 AM, [facility] * Additional services required to return to the preadmission environment? No * Can the patient safely return to the preadmission environment? Yes * Has this patient been hospitalized within the prior 30 days at any hospital? No Coverage Notice Reviewer: [id number] Carlos Mazariegos Notice Issued Date-Time: 05/20/2019 11:30 Notice Type: Patient Choice Letter Notice Delivered To: Family Member Relationship to Patient: Spouse Briquette Maker Name: GRETA DEAN Delivery Method: HAND - Hand Delivered [place] Days: Prior Verbal Notification: Recipient Understood Notice: Yes Recipient Signature: Yes Med Rec Note Co-signed by Attending: Coverage Notice Comment: [facility] PATIENT Reviewer: [id number] Carlos Mazariegos Notice Issued Date-Time: 05/20/2019 11:30 Notice Type: IM Discharge Notice Notice Delivered To: Family Member Relationship to Patient: Spouse Briquette Maker Name: GRETA DEAN Delivery Method: HAND - Hand Delivered [place] Days: Prior Verbal Notification: Recipient Understood Notice: Yes Recipient Signature: Yes Med Rec Note Co-signed by Attending: Coverage Notice Comment: Last DP export: 05/28/19 3:05 p Patient Name: MARIA ANTONIA DEAN Page [phone] at 1612 All edits/amendments must be made on the electronic document DICTATION DATE: 05/28/191611 ERP DEVELOPER: YUAN 05/28/19 161 RPT#: [id number] DC DATE:05/28/19 STATUS: DIS IN [facility] [address] [address] END OF REPORT
== END 2019-05-28 14:06 | disposition short-term general hospital (02) | DRG 947 ==
LOC: D.ER 11:20 → D.ICU 15:43 → D.M2 15:43 → D.ICU 05-23 10:25 → D.M2 05-26 14:47
PROVIDERS: Family Medicine; Internal Medicine Gastroenterology; Internal Medicine Nephrology; ADMIT Internal Medicine Nephrology; ATTEND Internal Medicine Nephrology
PROC: 0W3P8ZZ Control Bleeding in Gastrointestinal Tract, Via Natural or Artificial Opening Endoscopic (ICD-10-PCS; principal; 2019-05-23 16:08)
DX: G89.3 Neoplasm related pain (acute) (chronic) (principal); N18.6 End stage renal disease; K26.4 Chronic or unspecified duodenal ulcer with hemorrhage; K22.11 Ulcer of esophagus with bleeding; C22.8 Malignant neoplasm of liver, primary, unspecified as to type; C78.00 Secondary malignant neoplasm of unspecified lung; I12.0 Hypertensive chronic kidney disease with stage 5 chronic kidney disease or end stage renal disease; D62 Acute posthemorrhagic anemia; C78.89 Secondary malignant neoplasm of other digestive organs; Z99.2 Dependence on renal dialysis; I48.91 Unspecified atrial fibrillation; E03.9 Hypothyroidism, unspecified; R07.0 Pain in throat